=== PATIENT | female | born 1975 | race Caucasian/White ===

== ENCOUNTER 2020-12-15 12:20 | Outpatient (REF) | payer OTHER, SELFPAY ==
[2020-12-15 13:46] LABS: MANUAL DIFF FLAG NO
[2020-12-15 13:51] LABS: Basophils Absolute Auto 0.1 X10*3/uL (0.0-0.2); Basophils Percent Auto 0.7 % (0-2); Eosinophils Absolute Auto 0.2 X10*3/uL (0.0-0.4); Eosinophils Percent Auto 2.8 % (0-4); Hematocrit 42.7 % (37-47); Hemoglobin 13.8 g/dl (12.0-16.0); Imm Gran Abs Auto 0.02 X10*3/uL (0.00-0.03); Imm Gran Pct Auto 0.3 % (0.0-0.4); Lymphocytes Absolute Auto 1.6 X10*3/uL (1.2-4.9); Mean Corpuscular HGB Conc 32.3 g/dl (31.0-35.0); Mean Corpuscular Hemoglobin 31.2 pg (27.0-33.0); Mean Corpuscular Volume 96.6 fL (80-98); Monocytes Absolute Auto 0.7 X10*3/uL (0.1-1.2); Neutrophils Absolute Auto 4.3 X10*3/uL (2.0-8.3); Neutrophils Percent Auto 63.2 % (45-73); Platelet Count 360 X10*3/uL (160-400); Red Blood Count 4.42 X10*6/uL (4.20-5.50); Red Cell Distribution Width 13.8 % (11.0-16.0); White Blood Count 6.8 X10*3/uL (4.8-10.8)
[2020-12-15 14:18] LABS: Anion Gap 11 (12-20); Blood Urea Nitrogen 7 mg/dL (9-16); Carbon Dioxide 28 mmol/L (22-29); Chloride 105 mmol/L (96-108); Estimated Glomerular Filt Rate > 60; Glucose Random 94 mg/dL (60-115); Potassium 4.1 mmol/L (3.3-5.1); Sodium 140 mmol/L (135-145)
== END 2020-12-15 12:21 | disposition home or self-care (01) ==
LOC: HO.LAB 12:20
PROVIDERS: Visit Provider Nurse Practitioner Family
DX: R10.9 Unspecified abdominal pain (principal); R31.9 Hematuria, unspecified
CPT/HCPCS: 36415; 80048; 85025; 87086

== ENCOUNTER 2020-12-15 12:34 | Outpatient (REF) | payer OTHER, SELFPAY ==
--- NOTE | ~2020-12-15 | US_ITS ---
EXAMINATION: US RETROPERITONEAL LIMITED (RENAL ONLY) CLINICAL INFORMATION: Abdominal pain. COMPARISON: Ultrasound renal 10/17/2019. Ultrasound abdomen 04/30/2016. CT abdomen pelvis 02/16/2009. TECHNIQUE: Real-time imaging of the kidneys. FINDINGS: RIGHT KIDNEY: 11.1 x 5.3 x 5.6 cm (SAG x AP x TRV). The kidney is normal in size, contour, and echogenicity. Renal cortical thickness is normal. No calculi or focal parenchymal lesions. No hydronephrosis. LEFT KIDNEY: 10.9 x 5.6 x 4.3 cm (SAG x AP x TRV). The kidney is normal in size, contour, and echogenicity. Renal cortical thickness is normal. There are 2, 2 mm echogenic foci in the lower pole with twinkle artifact suggestive of small stones. No focal parenchymal lesions or hydronephrosis. US/US renal BI IMPRESSION: Small left renal stones.
== END 2020-12-15 12:35 | disposition home or self-care (01) ==
LOC: HO.HMGCX 12:34
PROVIDERS: PCP Internal Medicine; Visit Provider Nurse Practitioner Family
DX: R10.9 Unspecified abdominal pain (principal)
CPT/HCPCS: 76775

== ENCOUNTER 2021-01-30 15:49 | Outpatient (REF) | payer OTHER, SELFPAY ==
--- NOTE | ~2021-01-30 | MM_ITS ---
EXAMINATION: MM SCREENING DIGITAL BREAST TOMOSYNTHESIS, BILATERAL CLINICAL INFORMATION: Screening. Asymptomatic. The lifetime risk of breast cancer based on the Tyrer-Cuzick Model is 7%. COMPARISON: Mammography: 08/30/2019, 01/27/2018 TECHNIQUE: Digital breast tomosynthesis is performed in both the craniocaudal and mediolateral oblique views along with computer-aided detection (CAD). Synthesized 2D images are generated from the tomosynthesis. FINDINGS: The breasts are heterogeneously dense, which may obscure small masses (ACR BI-RADS breast composition Category c). There are no significant masses, abnormal calcifications, or other abnormalities. Parenchymal pattern is similar to prior studies. The axilla and skin contours are unremarkable. MM/MM tomosynthesis screening BI IMPRESSION: No mammographic evidence of malignancy. ASSESSMENT: BI-RADS 1: Negative RECOMMENDATION: Routine annual mammography screening. This patient's information was entered into a reminder system with a target due date for their next mammogram.
== END 2021-01-30 15:50 | disposition home or self-care (01) ==
LOC: HO.MAMMO 15:49
PROVIDERS: Visit Provider Internal Medicine
DX: Z12.31 Encounter for screening mammogram for malignant neoplasm of breast (principal)
CPT/HCPCS: 77063; 77067

== ENCOUNTER 2021-04-13 11:34 | Outpatient (REF) | payer OTHER, SELFPAY | END 2021-04-13 11:35 | disposition home or self-care (01) | LOC: HO.LNP 11:34 | PROVIDERS: Visit Provider Hospitalist | DX: Z20.822 Contact with and (suspected) exposure to COVID-19 (principal); J45.21 Mild intermittent asthma with (acute) exacerbation | CPT/HCPCS: U0003; U0005 ==

== ENCOUNTER 2021-06-13 10:54 | Outpatient (REF) | payer OTHER, SELFPAY ==
[2021-06-13 11:27] LABS: MANUAL DIFF FLAG NO
[2021-06-13 11:29] LABS: Basophils Percent Auto 0.6 % (0-2); Eosinophils Absolute Auto 0.2 X10*3/uL (0.0-0.4); Eosinophils Percent Auto 3.8 % (0-4); Hematocrit 38.7 % (37-47); Hemoglobin 13.1 g/dl (12.0-16.0); Imm Gran Abs Auto 0.01 X10*3/uL (0.00-0.03); Imm Gran Pct Auto 0.2 % (0.0-0.4); Lymphocytes Absolute Auto 1.6 X10*3/uL (1.2-4.9); Lymphocytes Percent Auto 24.6 % (20-40); Mean Corpuscular HGB Conc 33.9 g/dl (31.0-35.0); Mean Corpuscular Hemoglobin 31.1 pg (27.0-33.0); Mean Corpuscular Volume 91.9 fL (80-98); Mean Platelet Volume 9.8 fL (9.4-12.3); Monocytes Absolute Auto 0.5 X10*3/uL (0.1-1.2); Monocytes Percent Auto 7.8 % (2-11); Platelet Count 338 X10*3/uL (160-400); Red Blood Count 4.21 X10*6/uL (4.20-5.50); White Blood Count 6.3 X10*3/uL (4.8-10.8)
[2021-06-13 11:34] LABS: Glucose Urine UA NEG (NEG); Leukocyte Esterase Urine NEG (NEG); Nitrite Urine NEG (NEG); Urine Blood 1+ (NEG); Urine Ketones NEG (NEG); Urine Protein 1+ MG/DL (NEG-TRACE)
[2021-06-13 11:41] LABS: Appearance Urine HAZY; Color Urine YELLOW
[2021-06-13 11:55] LABS: Alanine Aminotransferase 21 U/L (0-31); Anion Gap 14 (12-20); Aspartate Amino Transferase 16 U/L (5-31); Blood Urea Nitrogen 7 mg/dL (9-16); Calcium 9.8 mg/dL (8.4-10.2); Carbon Dioxide 25 mmol/L (22-29); Chloride 106 mmol/L (96-108); Cholesterol 208 mg/dL; Estimated Glomerular Filt Rate > 60; Glucose Fasting 88 mg/dL (60-99); HDL Cholesterol 82 mg/dL; LDL Cholesterol Calculated 115 mg/dl; Sodium 141 mmol/L (135-145); Triglycerides 57 mg/dL
[2021-06-13 11:59] LABS: Mucus Urine 2+ /LPF; Squamous Epithelial Cell Urine 2+ /LPF
[2021-06-13 12:13] LABS: TSH reflex Free T4 0.39 uIU/mL (0.32-4.0); Vitamin D 25-OH Total 23.2 ng/mL (>30)
== END 2021-06-13 10:55 | disposition home or self-care (01) ==
LOC: HO.HMGCLDS 10:54
PROVIDERS: PCP Internal Medicine; Visit Provider Internal Medicine
DX: Z00.01 Encounter for general adult medical examination with abnormal findings (principal); R31.9 Hematuria, unspecified; R10.9 Unspecified abdominal pain; I10 Essential (primary) hypertension; Z86.32 Personal history of gestational diabetes; Z83.49 Family history of other endocrine, nutritional and metabolic diseases
CPT/HCPCS: 36415; 80048; 80061; 81001; 82306; 84443; 84450; 84460; 85025

== ENCOUNTER 2021-06-21 00:11 | Emergency (ER) | payer OTHER, SELFPAY ==
--- NOTE | ~2021-06-21 | XR_ITS ---
EXAMINATION: XR CHEST CLINICAL INFORMATION: Shortness of breath. Covid positive. COMPARISON: 09/11/2010 TECHNIQUE: Frontal view of the chest was obtained. FINDINGS: Bilateral nipple piercings. The lungs are well expanded. There is no focal consolidation, edema, or effusion. No pneumothorax. The cardiomediastinal silhouette is within normal limits. No acute osseous abnormality. XR/XR chest 1V IMPRESSION: Clear lungs.
[2021-06-21 00:45] VITALS: BP 127/64; PULSE 84; RESP 20; TEMP 37.4; O2SAT 98; BMI 24.3
--- NOTE | 2021-06-21 02:54 | ECG_ITS ---
Test Reason : DIZZINESS Blood Pressure : / mmHG Vent. Rate : 078 BPM Atrial Rate : 078 BPM P-R Int : 126 ms QRS Dur : 086 ms QT Int : 392 ms P-R-T Axes : 012 050 032 degrees QTc Int : 446 ms Sinus rhythm with Premature atrial complexes Otherwise normal ECG When compared with ECG of 01-DEC-2019 21:25, Premature atrial complexes are now Present Referred By: Bell Tobar Electronically Signed By:EDIE GRAY
--- NOTE | 2021-06-21 02:55 | ED.GENADULT ---
HPI - General Adult General Chief complaint: Nausea/Vomiting/Diarrhea Stated complaint: asthma nausea asthma Time Seen by Provider: 06/21/21 02:47 Source: patient Mode of arrival: ambulatory Limitations: no limitations History of Present Illness HPI narrative: Patient was emergency room complaining of generalized malaise. Patient complaining of headache, diffuse body aches, subjective fever, nausea, no vomiting or diarrhea. Related Data Home Medications Medication Instructions Recorded Confirmed albuterol sulfate 90 mcg/actuation 2 puff PO Q4H PRN 01/01/21 06/08/21 aerosol inhaler Previous Rx's Medication Instructions Recorded diclofenac sodium 1 % topical gel 2 g TOPICAL QID PRN #100 g 01/01/21 budesonide-formoterol HFA 160 2 puff INHALATION Q12H #10.2 g 06/08/21 mcg-4.5 mcg/actuation aerosol inhaler (Symbicort) cholecalciferol (vitamin D3) 1,250 1,250 mcg PO QWEEK 90 Days #13 cap 06/15/21 mcg (50,000 unit) capsule Allergies Allergy/AdvReac Type Severity Reaction Status Date / Time morphine [Morphine] Allergy Mild RASH Verified 06/08/21 17:37 penicillin G [Penicillin G] Allergy Mild ANAPHYLAXIS Verified 06/08/21 17:37 penicillin V Allergy Unknown anaphylaxis Verified 06/08/21 17:37 Review of Systems Review of Systems: Constitutional : No Weight loss, complaining of subjective fever, chills, fatigue, generalized malaise ENT/Mouth : No Hearing loss, No Ear Pain, No Nasal Congestion, No Sinus Pain, No Hoarseness, No sore throat, No Rhinorrhea, No Swallowing Difficulty Eyes: No Eye Pain, No Swelling, No Redness, No Foreign Body, No Discharge, No Vision Changes Cardiovascular : Complaining of chest achiness and back achiness No SOB, No Dyspnea on Exertion, No Orthopnea, No Edema, No Palpitations Respiratory : No Cough, No Sputum, No Wheezing, No Smoke Exposure, No Dyspnea Gastrointestinal : Complaining Nausea, No Vomiting, No Diarrhea, No Constipation, No abdominal Pain, No Hematochezia, No Melena Genitourinary : no irregular bleeding, No Dysuria, No Urinary Frequency, No Hematuria, No Urinary Incontinence, No Urgency, No Flank Pain, No Urinary Flow Changes, No Hesitancy Musculoskeletal : No joint pain, No Myalgias, No Joint Swelling Skin : No Skin Lesions, No rash Neuro : No Weakness, No Numbness, No Paresthesias, No Loss of Consciousness, No Dizziness, No Headache Psych : No Anxiety/Panic, No Depression, No SI/HI/AH/VH, No Social Issues, Heme/Lymph: No Bruising, No Bleeding,No Lymphadenopathy Endocrine : No Polyuria, No Polydipsia, No Temperature Intolerance [facility] Past Medical History Medical History Annual visit for general adult medical examination with abnormal findings Family history of thyroid disease Hx gestational diabetes Lumbago of lumbar region with sciatica Mild intermittent asthma Numbness and tingling of both legs Upper back pain on right side Surgical History History of appendectomy History of eye surgery History of removal of cyst History of tubal ligation Family History Family History (Updated 06/08/21 @ 12:50 by Sandra Dudley [facility]) Father CVD (cardiovascular disease) Mother No problems noted. Daughter No problems noted. Daughter No problems noted. 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 Oriented X3. No acute distress. Eyes: Pupils equal, round and reactive to light. ENT: Pharynx normal. Neck: Normal inspection. Neck supple. No lymph nodes noted. No crepitus CVS: Normal heart rate and rhythm. Pulses normal. Normal S1 and S2 Respiratory: No respiratory distress. Breath sounds normal. No Wheezing. No rales Abdomen: Soft and nontender. No rigidity. No distention. good BS x4 Skin: Skin warm and dry. Normal skin color. Normal skin turgor. Extremities: No lower extremity edema. No Lacerations. No Rash Neuro: Oriented X 3. No motor deficit. No sensory deficit. Moving all extermities. No slurred speech. Course Course Course Narrative: Patient tested positive for COVID-19. Chest x-ray negative, patient did not receive the immunization. Patient is ready for discharge. However, patient states that she is homeless, she does not have anywhere to live, currently staying with her 2 kids at a friend's house. States that if her friend finds out that she has COVID-19, she will be kicked out from the place with her 2 kids. Patient concerned about being homeless. Case management and PT consult pending. Sign-out given to Dr. Blackwell Medical Decision Making Lab Data Result diagrams: 06/21/21 03:57 06/21/21 03:57 Labs: Lab Results 06/21/21 06/21/21 06/21/21 Range/Units 03:57 03:57 03:57 WBC 6.5 (4.8-10.8) X10*3/uL RBC 4.46 (4.20-5.50) X10*6/uL Hgb 13.7 (12.0-16.0) g/dl Hct 40.5 (37-47) % MCV 90.8 (80-98) fL MCH 30.7 (27.0-33.0) pg MCHC 33.8 (31.0-35.0) g/dl RDW 12.0 (11.0-16.0) % Plt Count 279 (160-400) X10*3/uL MPV 9.3 L (9.4-12.3) fL Immature Gran % (Auto) 0.3 (0.0-0.4) % Neut % (Auto) 86.3 H (45-73) % Lymph % (Auto) 3.7 L (20-40) % Lassen % (Auto) 9.1 (2-11) % Eos % (Auto) 0.3 (0-4) % Baso % (Auto) 0.3 (0-2) % Lymph # (Auto) 0.2 L (1.2-4.9) X10*3/uL Lassen # (Auto) 0.6 (0.1-1.2) X10*3/uL Eos # (Auto) 0.0 (0.0-0.4) X10*3/uL Baso # (Auto) 0.0 (0.0-0.2) X10*3/uL Abs Immat Gran (auto) 0.02 (0.00-0.03) X10*3/uL Absolute Neuts (auto) 5.6 (2.0-8.3) X10*3/uL Absolute Nucleated RBC 0.000 (0.0-0.012) X10*3/uL Nucleated RBC % (auto) 0.0 (0.0-0.2) /100WBC Sodium Cancelled Potassium Cancelled Chloride Cancelled Carbon Dioxide Cancelled Anion Gap Cancelled BUN Cancelled Creatinine Cancelled Estim Creat Clear Calc Cancelled Estimated GFR Cancelled Random Glucose Cancelled Calcium Cancelled Total Bilirubin (0.0-1.0) mg/dL Direct Bilirubin (0.0-0.5) mg/dL AST (5-31) U/L ALT (0-31) U/L Alkaline Phosphatase (39-117) U/L Total Protein (6.5-8.0) g/dL Albumin (3.5-5.0) g/dL Beta HCG, Quant mIU/mL Urine Test (NEGATIVE) COVID-19 (SEUN) Positive A (Negative) COVID-19 Clin Com See Note 06/21/21 06/21/21 Range/Units 03:57 04:24 WBC (4.8-10.8) X10*3/uL RBC (4.20-5.50) X10*6/uL Hgb (12.0-16.0) g/dl Hct (37-47) % MCV (80-98) fL MCH (27.0-33.0) pg MCHC (31.0-35.0) g/dl RDW (11.0-16.0) % Plt Count (160-400) X10*3/uL MPV (9.4-12.3) fL Immature Gran % (Auto) (0.0-0.4) % Neut % (Auto) (45-73) % Lymph % (Auto) (20-40) % Lassen % (Auto) (2-11) % Eos % (Auto) (0-4) % Baso % (Auto) (0-2) % Lymph # (Auto) (1.2-4.9) X10*3/uL Lassen # (Auto) (0.1-1.2) X10*3/uL Eos # (Auto) (0.0-0.4) X10*3/uL Baso # (Auto) (0.0-0.2) X10*3/uL Abs Immat Gran (auto) (0.00-0.03) X10*3/uL Absolute Neuts (auto) (2.0-8.3) X10*3/uL Absolute Nucleated RBC (0.0-0.012) X10*3/uL Nucleated RBC % (auto) (0.0-0.2) /100WBC Sodium 139 Potassium 4.1 Chloride 107 Carbon Dioxide 23 Anion Gap 13 BUN 9 Creatinine 0.77 Estim Creat Clear Calc 89.7 Estimated GFR > 60 Random Glucose 112 Calcium 9.5 Total Bilirubin 0.3 (0.0-1.0) mg/dL Direct Bilirubin < 0.2 (0.0-0.5) mg/dL AST 51 H (5-31) U/L ALT 44 H (0-31) U/L Alkaline Phosphatase 103 (39-117) U/L Total Protein 7.5 (6.5-8.0) g/dL Albumin 4.5 (3.5-5.0) g/dL Beta HCG, Quant < 2 mIU/mL Urine Test NEGATIVE (NEGATIVE) COVID-19 (SEUN) (Negative) COVID-19 Clin Com ECG Data Attestation: I personally reviewed and interpreted this ECG as follows: (Sinus rhythm, heart rate 78, no ST segment depression or elevation, no T-wave inversion, QTC 446) Discharge Plan Discharge Clinical Impression: COVID-19 Patient Disposition: Home, Self-Care Instructions: COVID-19 (Coronavirus Disease 2019) (ED) Additional Instructions: Please follow-up with your primary care physician tomorrow. If you have any worsening or new symptoms, please return to the emergency room or call 911 Prescriptions: No Action cholecalciferol (vitamin D3) 1,250 mcg (50,000 unit) capsule 1,250 mcg PO QWEEK 90 Days Qty: 13 RF: 0 ketorolac 60 mg/2 mL solution 60 mg IM ONCE Qty: 2 RF: 0 budesonide-formoterol [Symbicort] 160-4.5 mcg/actuation HFA aerosol inhaler 2 puff inhalation Q12H Qty: 10.2 RF: 0 albuterol sulfate 90 mcg/actuation HFA aerosol inhaler 2 puff PO Q4H PRNRF: 0 diclofenac sodium 1 % gel 2 g topical QID PRN (Reason: pain, moderate) Qty: 100 RF: 2
[2021-06-21] MEDS: Ibuprofen 600 MG TABLET PO (03:50)
[2021-06-21 04:00] VITALS: BP 136/84; PULSE 74; RESP 18; O2SAT 98
[2021-06-21 04:01] LABS: MANUAL DIFF FLAG NO
[2021-06-21 04:03] LABS: Basophils Percent Auto 0.3 % (0-2); Eosinophils Percent Auto 0.3 % (0-4); Hematocrit 40.5 % (37-47); Hemoglobin 13.7 g/dl (12.0-16.0); Imm Gran Abs Auto 0.02 X10*3/uL (0.00-0.03); Imm Gran Pct Auto 0.3 % (0.0-0.4); Lymphocytes Absolute Auto 0.2 X10*3/uL (1.2-4.9); Lymphocytes Percent Auto 3.7 % (20-40); Mean Corpuscular HGB Conc 33.8 g/dl (31.0-35.0); Mean Corpuscular Hemoglobin 30.7 pg (27.0-33.0); Mean Corpuscular Volume 90.8 fL (80-98); Mean Platelet Volume 9.3 fL (9.4-12.3); Monocytes Absolute Auto 0.6 X10*3/uL (0.1-1.2); Monocytes Percent Auto 9.1 % (2-11); Neutrophils Absolute Auto 5.6 X10*3/uL (2.0-8.3); Neutrophils Percent Auto 86.3 % (45-73); Platelet Count 279 X10*3/uL (160-400); Red Blood Count 4.46 X10*6/uL (4.20-5.50); White Blood Count 6.5 X10*3/uL (4.8-10.8)
[2021-06-21] MEDS: 0.9 % Sodium Chloride 1,000 ML 999 ML IVCONT (04:04)
[2021-06-21 04:16] LABS: IDNOW Serial# 9DD0AD1C
[2021-06-21 04:18] LABS: COVID-19 Test Positive (Negative)
[2021-06-21 04:32] LABS: UPreg QC Valid YES; Urine Pregnancy NEGATIVE (NEGATIVE)
[2021-06-21 04:32] LABS: Alanine Aminotransferase 44 U/L (0-31); Albumin Level 4.5 g/dL (3.5-5.0); Alkaline Phosphatase 103 U/L (39-117); Anion Gap 13 (12-20); Aspartate Amino Transferase 51 U/L (5-31); Bilirubin Direct < 0.2 mg/dL (0.0-0.5); Bilirubin Total 0.3 mg/dL (0.0-1.0); Blood Urea Nitrogen 9 mg/dL (9-16); Calcium 9.5 mg/dL (8.4-10.2); Carbon Dioxide 23 mmol/L (22-29); Chloride 107 mmol/L (96-108); Creatinine Clr Calc Pharmacy 89.7; Estimated Glomerular Filt Rate > 60; Glucose Random 112 mg/dL (60-115); Potassium 4.1 mmol/L (3.3-5.1); Sodium 139 mmol/L (135-145); Total Protein 7.5 g/dL (6.5-8.0)
[2021-06-21 04:38] LABS: HCG Quantitative < 2 mIU/mL
[2021-06-21 05:43] VITALS: BP 132/73; PULSE 84; RESP 16
--- NOTE | 2021-06-21 09:19 | MHC.CM.ED ---
Received consult for assessment of d/c needs: review of EMR notes pt with + COVID and in need of housing (listed as homeless). Pt has already d/c'd from the ED without CM consult. EMR notes she and her 2 children are staying with friends and will all be masked.
== END 2021-06-21 08:39 | disposition home or self-care (01) ==
PROVIDERS: Emergency Provider Emergency Medicine; PCP Internal Medicine
DX: U07.1 COVID-19 (principal); R11.2 Nausea with vomiting, unspecified; J45.909 Unspecified asthma, uncomplicated; Z79.899 Other long term (current) drug therapy; Z87.891 Personal history of nicotine dependence
CPT/HCPCS: 36415; 71045; 80048; 80076; 81025; 84702; 85025; 87086; 87635; 93005; 99284

== ENCOUNTER 2021-06-24 22:23 | Emergency (ER) | payer OTHER, SELFPAY ==
--- NOTE | 2021-06-24 | ECG_ITS ---
Test Reason : CHEST PAIN Blood Pressure : / mmHG Vent. Rate : 070 BPM Atrial Rate : 070 BPM P-R Int : 114 ms QRS Dur : 082 ms QT Int : 406 ms P-R-T Axes : -02 040 028 degrees QTc Int : 438 ms Normal sinus rhythm Normal ECG When compared with ECG of 21-JUN-2021 04:08, Premature atrial complexes are no longer Present Referred By: Generic ED Physician Electronically Signed By:EDIE GRAY
[2021-06-24 22:24] VITALS: BP 135/75; BP 153/85; PULSE 74; PULSE 75; RESP 18; TEMP 37.3; O2SAT 98; BMI 24.0
[2021-06-24 22:42] LABS: MANUAL DIFF FLAG NO
[2021-06-24 22:43] LABS: Eosinophils Percent Auto 0.3 % (0-4); Hemoglobin 14.3 g/dl (12.0-16.0); Imm Gran Abs Auto 0.01 X10*3/uL (0.00-0.03); Imm Gran Pct Auto 0.3 % (0.0-0.4); Lymphocytes Absolute Auto 0.7 X10*3/uL (1.2-4.9); Lymphocytes Percent Auto 24.2 % (20-40); Mean Corpuscular HGB Conc 34.9 g/dl (31.0-35.0); Mean Corpuscular Hemoglobin 30.8 pg (27.0-33.0); Mean Corpuscular Volume 88.2 fL (80-98); Mean Platelet Volume 9.9 fL (9.4-12.3); Monocytes Absolute Auto 0.3 X10*3/uL (0.1-1.2); Monocytes Percent Auto 10.9 % (2-11); Neutrophils Absolute Auto 1.9 X10*3/uL (2.0-8.3); Neutrophils Percent Auto 64.3 % (45-73); Platelet Count 195 X10*3/uL (160-400); Red Blood Count 4.65 X10*6/uL (4.20-5.50); Red Cell Distribution Width 11.9 % (11.0-16.0); White Blood Count 2.9 X10*3/uL (4.8-10.8)
[2021-06-24 23:06] LABS: Troponin-I High Sensitivity 11.1 ng/L (<3.5-17.0)
[2021-06-24 23:23] LABS: INTERNATIONAL NORM RATIO 1.1 (0.9-1.1); Prothrombin Time 12.4 SEC (9.9-13.0)
[2021-06-24 23:27] LABS: D Dimer < 200 NG/ML
[2021-06-24 23:56] LABS: Alanine Aminotransferase 20 U/L (0-31); Albumin Level 4.1 g/dL (3.5-5.0); Alkaline Phosphatase 81 U/L (39-117); Anion Gap 13 (12-20); Aspartate Amino Transferase 17 U/L (5-31); Bilirubin Total 0.4 mg/dL (0.0-1.0); Blood Urea Nitrogen 7 mg/dL (9-16); Calcium 8.9 mg/dL (8.4-10.2); Carbon Dioxide 22 mmol/L (22-29); Chloride 108 mmol/L (96-108); Creatinine Clr Calc Pharmacy 97.8; Estimated Glomerular Filt Rate > 60; Glucose Random 110 mg/dL (60-115); Potassium 3.2 mmol/L (3.3-5.1); Sodium 140 mmol/L (135-145); Total Protein 6.8 g/dL (6.5-8.0)
[2021-06-25] VITALS: BP 134/78; PULSE 72; RESP 18; TEMP 37; O2SAT 99
[2021-06-25] MEDS: Potassium Chloride ER 20 MEQ TAB.ER.PRT 60 MEQ PO (01:06)
--- NOTE | 2021-06-25 01:46 | ED_ITS ---
HPI - Chest Pain General Chief Complaint: Chest Pain Stated Complaint: stabbing chest pain. w/ covid Time Seen by Provider: 06/25/21 00:40 Source: patient Mode of arrival: EMS History of Present Illness HPI narrative: 45-year-old female with history of asthma presents with sharp stabbing, left-sided chest pain, radiating into the jaw/neck that started acutely and patient denies association with change in position from lying to sitting up but states that it worsens with deep inspiration. She states that EN route in the ambulance she was given aspirin and that improved her symptoms. Related Data Home Medications Medication Instructions Recorded Confirmed albuterol sulfate 90 mcg/actuation 2 puff PO Q4H PRN 06/25/21 06/25/21 aerosol inhaler diclofenac sodium 1 % topical gel 2 g TOPICAL BID PRN 06/25/21 06/25/21 montelukast 10 mg tablet 1 tab PO DAILY 06/25/21 06/25/21 Allergies Allergy/AdvReac Type Severity Reaction Status Date / Time morphine [Morphine] Allergy Mild RASH Verified 06/08/21 17:37 penicillin G [Penicillin G] Allergy Mild ANAPHYLAXIS Verified 06/08/21 17:37 penicillin V Allergy Unknown anaphylaxis Verified 06/08/21 17:37 Review of Systems Review of Systems: Pertinent positives and negatives as stated in HPI 10 point review of systems is otherwise negative. [facility] Past Medical History Source: nursing notes reviewed Medical History Annual visit for general adult medical examination with abnormal findings Family history of thyroid disease Hx gestational diabetes Lumbago of lumbar region with sciatica Mild intermittent asthma Numbness and tingling of both legs Upper back pain on right side Surgical History History of appendectomy History of eye surgery History of removal of cyst History of tubal ligation Family History Family History Father CVD (cardiovascular disease) Mother No problems noted. Daughter No problems noted. Daughter No problems noted. 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 GENERAL: Well developed, well nourished, in no acute distress. HEAD: Normocephalic/atraumatic EYES: PERRLA, EOMI EARS: Ext canals without abnormality, TMs non-bulging and non-erythematous NOSE: Nares patent bilateral OROPHARYNX: no oral lesions noted, posterior pharynx clear NECK: Supple, no adenopathy LUNGS: Normal breath sounds. No adventitious sounds or accessory muscle use. SpO2<99> CARDIOVASCULAR: Regular rate and rhythm without noted murmurs, no JVD or lower extremity edema. ABDOMEN: Soft, non-tender, non-distended with bowel sounds. SKIN: Inspection of the skin reveals no rashes NEUROLOGIC: Alert and oriented x 4. Course Course Course Narrative: 45-year-old female with history and clinical presentation concerning for possible COVID related symptoms. On review of all investigations no evidence to suggest PE and review of EKG without acute findings and although troponins were noted to be detectable they are not elevated. Serial troponins were conducted and showed a downward trend and patient indicates improvement in her symptoms. MDM - Chest Pain Lab Data Result diagrams: 06/24/21 22:37 06/24/21 23:09 Labs: Lab Results 06/24/21 06/24/21 06/24/21 Range/Units 22:37 22:37 23:09 WBC 2.9 L (4.8-10.8) X10*3/uL RBC 4.65 (4.20-5.50) X10*6/uL Hgb 14.3 (12.0-16.0) g/dl Hct 41.0 (37-47) % MCV 88.2 (80-98) fL MCH 30.8 (27.0-33.0) pg MCHC 34.9 (31.0-35.0) g/dl RDW 11.9 (11.0-16.0) % Plt Count 195 D (160-400) X10*3/uL MPV 9.9 (9.4-12.3) fL Immature Gran % (Auto) 0.3 (0.0-0.4) % Neut % (Auto) 64.3 (45-73) % Lymph % (Auto) 24.2 (20-40) % Woodson % (Auto) 10.9 (2-11) % Eos % (Auto) 0.3 (0-4) % Baso % (Auto) 0.0 (0-2) % Lymph # (Auto) 0.7 L (1.2-4.9) X10*3/uL Woodson # (Auto) 0.3 (0.1-1.2) X10*3/uL Eos # (Auto) 0.0 (0.0-0.4) X10*3/uL Baso # (Auto) 0.0 (0.0-0.2) X10*3/uL Abs Immat Gran (auto) 0.01 (0.00-0.03) X10*3/uL Absolute Neuts (auto) 1.9 L (2.0-8.3) X10*3/uL Absolute Nucleated RBC 0.000 (0.0-0.012) X10*3/uL Nucleated RBC % (auto) 0.0 (0.0-0.2) /100WBC PT 12.4 (9.9-13.0) SEC INR 1.1 (0.9-1.1) D-Dimer < 200 NG/ML Sodium (135-145) mmol/L Potassium (3.3-5.1) mmol/L Chloride (96-108) mmol/L Carbon Dioxide (22-29) mmol/L Anion Gap (12-20) BUN (9-16) mg/dL Creatinine (0.5-1.4) mg/dL Estim Creat Clear Calc Estimated GFR Random Glucose (60-115) mg/dL Calcium (8.4-10.2) mg/dL Total Bilirubin (0.0-1.0) mg/dL AST (5-31) U/L ALT (0-31) U/L Alkaline Phosphatase (39-117) U/L Troponin I High Sens 11.1 (<3.5-17.0) ng/L Total Protein (6.5-8.0) g/dL Albumin (3.5-5.0) g/dL 06/24/21 06/25/21 Range/Units 23:09 01:57 WBC (4.8-10.8) X10*3/uL RBC (4.20-5.50) X10*6/uL Hgb (12.0-16.0) g/dl Hct (37-47) % MCV (80-98) fL MCH (27.0-33.0) pg MCHC (31.0-35.0) g/dl RDW (11.0-16.0) % Plt Count (160-400) X10*3/uL MPV (9.4-12.3) fL Immature Gran % (Auto) (0.0-0.4) % Neut % (Auto) (45-73) % Lymph % (Auto) (20-40) % Woodson % (Auto) (2-11) % Eos % (Auto) (0-4) % Baso % (Auto) (0-2) % Lymph # (Auto) (1.2-4.9) X10*3/uL Woodson # (Auto) (0.1-1.2) X10*3/uL Eos # (Auto) (0.0-0.4) X10*3/uL Baso # (Auto) (0.0-0.2) X10*3/uL Abs Immat Gran (auto) (0.00-0.03) X10*3/uL Absolute Neuts (auto) (2.0-8.3) X10*3/uL Absolute Nucleated RBC (0.0-0.012) X10*3/uL Nucleated RBC % (auto) (0.0-0.2) /100WBC PT (9.9-13.0) SEC INR (0.9-1.1) D-Dimer NG/ML Sodium 140 (135-145) mmol/L Potassium 3.2 L D (3.3-5.1) mmol/L Chloride 108 (96-108) mmol/L Carbon Dioxide 22 (22-29) mmol/L Anion Gap 13 (12-20) BUN 7 L (9-16) mg/dL Creatinine 0.68 (0.5-1.4) mg/dL Estim Creat Clear Calc 97.8 Estimated GFR > 60 Random Glucose 110 (60-115) mg/dL Calcium 8.9 D (8.4-10.2) mg/dL Total Bilirubin 0.4 (0.0-1.0) mg/dL AST 17 D (5-31) U/L ALT 20 (0-31) U/L Alkaline Phosphatase 81 D (39-117) U/L Troponin I High Sens 9.9 (<3.5-17.0) ng/L Total Protein 6.8 (6.5-8.0) g/dL Albumin 4.1 (3.5-5.0) g/dL Discharge Plan Discharge Clinical Impression: Lab test positive for detection of COVID-19 virus, Atypical chest pain Patient Disposition: Home, Self-Care Instructions: COVID-19 (Coronavirus Disease 2019) (ED), Chest Pain (ED) Additional Instructions: 1. Continue to quarantine as per state and Federal guidelines for all personnel that are found to be COVID-19 positive. 2. Recommend alternating [id number] Tylenol/ibuprofen as needed for additional chest wall pain. 3. Follow-up with your primary care provider via telemedicine in the next 1-2 days for re-evaluation. Return to the ER for acute worsening of symptoms. Prescriptions: No Action montelukast 10 mg tablet 1 tab PO DAILY RF: 0 albuterol sulfate 90 mcg/actuation HFA aerosol inhaler 2 puff PO Q4H PRN (Reason: Wheezing) RF: 0 diclofenac sodium 1 % gel 2 g topical BID PRN (Reason: pain) RF: 0 Referrals: Cristina Andersen MD [Primary Care Provider] - 2 days
[2021-06-25 02:41] LABS: Troponin-I High Sensitivity 9.9 ng/L (<3.5-17.0)
== END 2021-06-25 03:12 | disposition home or self-care (01) ==
PROVIDERS: Emergency Provider Student in an Organized Health Care Education/Training Program; PCP Internal Medicine
DX: U07.1 COVID-19 (principal); R07.9 Chest pain, unspecified; Z79.899 Other long term (current) drug therapy
CPT/HCPCS: 36415; 80053; 84484; 85025; 85379; 85610; 93005; 99283; 99285

== ENCOUNTER 2022-05-25 12:17 | Emergency (ER) | payer OTHER, SELFPAY ==
--- NOTE | ~2022-05-25 | XR_ITS ---
EXAMINATION: XR CHEST CLINICAL INFORMATION: Chest tightness COMPARISON: 06/26/2021 TECHNIQUE: 2 views of the chest were obtained. FINDINGS: No significant abnormality is noted involving the heart, lungs, mediastinum, bony thorax or soft tissues. XR/XR chest 2V IMPRESSION: Unremarkable examination.
[2022-05-25 12:41] VITALS: BP 145/76; PULSE 107; RESP 20; TEMP 38; O2SAT 100; BMI 25.8
--- NOTE | 2022-05-25 12:47 | ECG_ITS ---
Test Reason : chest tightness Blood Pressure : / mmHG Vent. Rate : 102 BPM Atrial Rate : 102 BPM P-R Int : 122 ms QRS Dur : 078 ms QT Int : 322 ms P-R-T Axes : 057 049 017 degrees QTc Int : 419 ms Sinus tachycardia Nonspecific ST abnormality Borderline ECG No significant changes when compared with the previous EKG of 24 jun 2021 Referred By: Generic ED Physician Electronically Signed By:TREY MONAHAN
[2022-05-25] MEDS: Ondansetron ODT 4 MG TAB.RAPDIS TRANSLINGU (12:50)
[2022-05-25 13:07] LABS: MANUAL DIFF FLAG NO
[2022-05-25 13:08] LABS: Basophils Percent Auto 0.3 % (0-2); Eosinophils Absolute Auto 0.1 X10*3/uL (0.0-0.4); Hematocrit 37.7 % (37.0-47.0); Hemoglobin 12.6 g/dl (12.0-16.0); Imm Gran Abs Auto 0.02 X10*3/uL (0.00-0.03); Imm Gran Pct Auto 0.3 % (0.0-0.4); Lymphocytes Absolute Auto 0.5 X10*3/uL (1.2-4.9); Lymphocytes Percent Auto 7.6 % (20-40); Mean Corpuscular HGB Conc 33.4 g/dl (31.0-35.0); Mean Corpuscular Volume 86.7 fL (80.0-98.0); Monocytes Absolute Auto 0.5 X10*3/uL (0.1-1.2); Monocytes Percent Auto 7.6 % (2-11); Neutrophils Absolute Auto 4.9 x10*3/uL (2.0-8.3); Neutrophils Percent Auto 83.2 % (45-73); Platelet Count 249 X10*3/uL (160-400); Red Blood Count 4.35 X10*6/uL (4.20-5.50); Red Cell Distribution Width 12.3 % (11.0-16.0); White Blood Count 5.9 X10*3/uL (4.8-10.8)
[2022-05-25 13:16] LABS: IDNOW Serial# 16C4AD1C
[2022-05-25 13:17] LABS: COVID-19 Test Positive (Negative)
[2022-05-25 13:31] LABS: Troponin-I High Sensitivity 3.9 ng/L (<3.5-17.0)
--- NOTE | 2022-05-25 14:13 | ED.NAVMDI ---
HPI - Nausea/Vomiting/Diarrhea General Chief complaint: Nausea/Vomiting/Diarrhea Stated complaint: Chest pain/Vomiting/Fever Time Seen by Provider: 05/25/22 12:49 Source: patient Mode of arrival: ambulatory Limitations: no limitations History of Present Illness HPI Narrative: patient with diarrhea, vomiting and chest pain starting this morning. She had diffuse myalgias MD elicited complaint: nausea, vomiting and diarrhea Onset (ago): hour(s) Associated nausea: Yes Associated abdominal pain: Yes Severity: mild Quality: cramping Associated symptoms: myalgias, fever/chills, malaise and nausea/vomiting Related Data Home Medications Medication Instructions Recorded Confirmed cholecalciferol (vitamin D3) 25 25 mcg PO DAILY 12/15/21 12/15/21 mcg (1,000 unit) capsule vitamin E (dl, acetate) 450 mg 450 mg PO DAILY 12/15/21 12/15/21 (1,000 unit) capsule Previous Rx's Medication Instructions Recorded sumatriptan succinate 50 mg tablet 50 mg PO Q2-4H PRN migraine 01/13/22 (Imitrex) headache #10 tabs albuterol sulfate 90 mcg/actuation 2 puff PO Q4H PRN Wheezing #6.7 03/09/22 aerosol inhaler grams azithromycin 250 mg tablet See Rx Instructions PO .COMPLEX #6 03/09/22 tabs naproxen 500 mg tablet (Naprosyn) 500 mg PO BID #20 tabs 05/25/22 ondansetron 4 mg disintegrating 4 mg PO Q8H 4 days #12 tabs 05/25/22 tablet Allergies Allergy/AdvReac Type Severity Reaction Status Date / Time morphine [Morphine] Allergy Mild RASH Verified 03/09/22 16:56 penicillin G [Penicillin G] Allergy Mild ANAPHYLAXIS Verified 03/09/22 16:56 penicillin V Allergy Unknown anaphylaxis Verified 03/09/22 16:56 Review of Systems Constitutional: Constitutional: Reports no additional constitutional complaints Eyes: Eyes: Reports no additional eye complaints ENT: Denies dizziness Cardiovascular: Cardiovascular: Reports no additional cardiovascular complaints Respiratory: Respiratory: Reports as per HPI Gastrointestinal: Gastrointestinal: Reports nausea Genitourinary: Genitourinary: Reports no additional female genitourinary complaints Musculoskeletal: Musculoskeletal: Reports no additional musculoskeletal complaints Integumentary/Breasts: Skin/Breast: Denies rash Neurologic: Reports system reviewed and no additional complaints, except as documented, Denies dizziness and Denies Sensory deficit (Neuro) Psychiatric: Psychiatric: Denies anxiety PMFSH Past Medical History Medical History Annual visit for general adult medical examination with abnormal findings Elevated alkaline phosphatase level Elevated liver enzymes Family history of thyroid disease Hx gestational diabetes Lumbago of lumbar region with sciatica Mild intermittent asthma Numbness and tingling of both legs Tension type headache Upper back pain on right side Surgical History History of appendectomy History of eye surgery History of removal of cyst History of tubal ligation Family History Family History Father CVD (cardiovascular disease) Mother No problems noted. Daughter No problems noted. Daughter No problems noted. 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 Current occupational exposures/hazards: No Physical Exam Vital Signs: Vital Signs: Last Vital Signs Temp 98.2 F 05/25/22 14:14 Pulse 86 05/25/22 14:14 Resp 18 05/25/22 14:14 BP 132/74 05/25/22 14:14 Pulse Ox 100 05/25/22 14:14 O2 Del Method 05/25/22 14:14 BMI result Body Mass Index 25.8 Const: General: healthy appearing Nutritional Appearance: average body habitus Orientation/consciousness: oriented to person and patient oriented x3 Limitations: no limitations HEENT: Head: Yes normal to inspection Ears: external ears normal General nose exam: Normal external nose present Mouth: Normal oral and palatal mucosa present and oropharynx normal Throat: Yes posterior oropharynx normal Eyes: General: appearance normal, both eyes and all related structures Neck: Other: supple Neck: Yes normal visual inspection Chest: Chest palpation & inspection: normal inspection of the chest Resp: Auscultation: clear to auscultation bilaterally Cardio: Jugular venous distension: no JVD Rate: regular rate Rhythm: regular rhythm Heart sounds: S1 normal heart sound present and S2 normal heart sound present GI: Inspection: Yes normal to inspection Palpation (GI): Soft to palpation, nontender and No hepatosplenomegaly present Auscultation: normal bowel sounds : General: Yes no CVA tenderness Back/Spine/Pelvis: Back: no CVA tenderness Skin: General skin exam: no rashes or lesions noted Neuro: General: oriented to person and patient oriented x3 Cranial nerves: Yes CN's II-XII intact bilaterally Motor exam (neuro): 5/5 motor strength present throughout Sensory Exam: No Sensory deficit (Neuro) Extrem: General: Yes normal to inspection Psych: Appearance: grossly normal Course Reevaluation(s) Reevaluation #1: patient with COVID, will start High dose NSAIDS will dc home Time: 14:24 MDM - Nausea/Vomiting/Diarrhea Lab Data Result diagrams: 05/25/22 12:57 05/25/22 12:57 Labs: Lab Results 05/25/22 05/25/22 05/25/22 Range/Units 12:57 12:57 12:57 WBC 5.9 (4.8-10.8) X10*3/uL RBC 4.35 (4.20-5.50) X10*6/uL Hgb 12.6 (12.0-16.0) g/dl Hct 37.7 (37.0-47.0) % MCV 86.7 (80.0-98.0) fL MCH 29.0 (27.0-33.0) pg MCHC 33.4 (31.0-35.0) g/dl RDW 12.3 (11.0-16.0) % Plt Count 249 (160-400) X10*3/uL MPV 9.0 L (9.4-12.3) fL Immature Gran % (Auto) 0.3 (0.0-0.4) % Neut % (Auto) 83.2 H (45-73) % Lymph % (Auto) 7.6 L (20-40) % [place] % (Auto) 7.6 (2-11) % Eos % (Auto) 1.0 (0-4) % Baso % (Auto) 0.3 (0-2) % Lymph # (Auto) 0.5 L (1.2-4.9) X10*3/uL [place] # (Auto) 0.5 (0.1-1.2) X10*3/uL Eos # (Auto) 0.1 (0.0-0.4) X10*3/uL Baso # (Auto) 0.0 (0.0-0.2) X10*3/uL Abs Immat Gran (auto) 0.02 (0.00-0.03) X10*3/uL Absolute Neuts (auto) 4.9 (2.0-8.3) x10*3/uL Absolute Nucleated RBC 0.000 (0.0-0.012) X10*3/uL Nucleated RBC % (auto) 0.0 (0.0-0.2) /100WBC Sodium 137 (135-145) mmol/L Potassium 4.2 D (3.3-5.1) mmol/L Chloride 104 (96-108) mmol/L Carbon Dioxide 25 (22-29) mmol/L Anion Gap 12 (12-20) BUN 6 L (9-16) mg/dL Creatinine 0.74 (0.5-1.4) mg/dL Estim Creat Clear Calc 96.8 Estimated GFR > 60 Random Glucose 102 (60-115) mg/dL Calcium 9.8 D (8.4-10.2) mg/dL Total Bilirubin 0.5 (0.0-1.0) mg/dL Direct Bilirubin 0.2 (0.0-0.5) mg/dL AST 20 (5-31) U/L ALT 25 (0-31) U/L Alkaline Phosphatase 107 D (39-117) U/L Troponin I High Sens 3.9 (<3.5-17.0) ng/L Total Protein 7.9 (6.5-8.0) g/dL Albumin 4.6 (3.5-5.0) g/dL Lipase 28 (8-78) U/L COVID-19 (SEUN) (Negative) COVID-19 Clin Com 05/25/22 Range/Units 12:57 WBC (4.8-10.8) X10*3/uL RBC (4.20-5.50) X10*6/uL Hgb (12.0-16.0) g/dl Hct (37.0-47.0) % MCV (80.0-98.0) fL MCH (27.0-33.0) pg MCHC (31.0-35.0) g/dl RDW (11.0-16.0) % Plt Count (160-400) X10*3/uL MPV (9.4-12.3) fL Immature Gran % (Auto) (0.0-0.4) % Neut % (Auto) (45-73) % Lymph % (Auto) (20-40) % [place] % (Auto) (2-11) % Eos % (Auto) (0-4) % Baso % (Auto) (0-2) % Lymph # (Auto) (1.2-4.9) X10*3/uL [place] # (Auto) (0.1-1.2) X10*3/uL Eos # (Auto) (0.0-0.4) X10*3/uL Baso # (Auto) (0.0-0.2) X10*3/uL Abs Immat Gran (auto) (0.00-0.03) X10*3/uL Absolute Neuts (auto) (2.0-8.3) x10*3/uL Absolute Nucleated RBC (0.0-0.012) X10*3/uL Nucleated RBC % (auto) (0.0-0.2) /100WBC Sodium (135-145) mmol/L Potassium (3.3-5.1) mmol/L Chloride (96-108) mmol/L Carbon Dioxide (22-29) mmol/L Anion Gap (12-20) BUN (9-16) mg/dL Creatinine (0.5-1.4) mg/dL Estim Creat Clear Calc Estimated GFR Random Glucose (60-115) mg/dL Calcium (8.4-10.2) mg/dL Total Bilirubin (0.0-1.0) mg/dL Direct Bilirubin (0.0-0.5) mg/dL AST (5-31) U/L ALT (0-31) U/L Alkaline Phosphatase (39-117) U/L Troponin I High Sens (<3.5-17.0) ng/L Total Protein (6.5-8.0) g/dL Albumin (3.5-5.0) g/dL Lipase (8-78) U/L COVID-19 (SEUN) Positive A (Negative) COVID-19 Clin Com See Note Imaging Data Chest x-ray: Radiologist's impression: No infiltrate or effusions ECG Data Attestation: I personally reviewed and interpreted this ECG as follows: Interpretation: sinus rate 100, no st or twave changes Discharge Plan Discharge Clinical Impression: COVID-19 Patient Disposition: Home, Self-Care Instructions: COVID-19 (Coronavirus Disease 2019) (ED) Prescriptions: New naproxen [Naprosyn] 500 mg tablet 500 mg PO BID Qty: 20 0RF ondansetron 4 mg tablet,disintegrating 4 mg PO Q8H 4 Days Qty: 12 0RF No Action sumatriptan succinate [Imitrex] 50 mg tablet 50 mg PO Q2-4H PRN (Reason: migraine headache) Qty: 10 0RF Rx Instructions: do not exceed 2 doses per 24 hrs cholecalciferol (vitamin D3) 25 mcg (1,000 unit) capsule 25 mcg PO DAILY vitamin E (dl, acetate) 450 mg (1,000 unit) capsule 450 mg PO DAILY azithromycin 250 mg tablet See Rx Instructions PO .COMPLEX Qty: 6 0RF Rx Instructions: take 500 mg today (day 1), then 250 mg for 4 days (days 2-5) PO albuterol sulfate 90 mcg/actuation HFA aerosol inhaler 2 puff PO Q4H PRN (Reason: Wheezing) Qty: 6.7 0RF Referrals: Cristina Andersen MD [Primary Care Provider] - 1 week
[2022-05-25 14:14] VITALS: BP 132/74; PULSE 86; RESP 18; TEMP 36.8; O2SAT 100
[2022-05-25] MEDS: Ketorolac Tromethamine 30 MG/ML VIAL IVPUSH (14:48)
[2022-05-25] MEDS: 0.9 % Sodium Chloride 1,000 ML 999 ML IVCONT (14:48)
[2022-05-25 15:41] LABS: Alanine Aminotransferase 25 U/L (0-31); Albumin Level 4.6 g/dL (3.5-5.0); Alkaline Phosphatase 107 U/L (39-117); Anion Gap 12 (12-20); Aspartate Amino Transferase 20 U/L (5-31); Bilirubin Direct 0.2 mg/dL (0.0-0.5); Bilirubin Total 0.5 mg/dL (0.0-1.0); Blood Urea Nitrogen 6 mg/dL (9-16); Calcium 9.8 mg/dL (8.4-10.2); Carbon Dioxide 25 mmol/L (22-29); Chloride 104 mmol/L (96-108); Creatinine Clr Calc Pharmacy 96.8; Estimated Glomerular Filt Rate > 60; Glucose Random 102 mg/dL (60-115); Lipase 28 U/L (8-78); Potassium 4.2 mmol/L (3.3-5.1); Sodium 137 mmol/L (135-145); Total Protein 7.9 g/dL (6.5-8.0)
[2022-05-25 16:42] VITALS: BP 117/60; PULSE 100; RESP 18; TEMP 36.8; O2SAT 97
== END 2022-05-25 17:08 | disposition home or self-care (01) ==
LOC: HO.ED 16:25
PROVIDERS: Emergency Provider Emergency Medicine; PCP Internal Medicine
DX: U07.1 COVID-19 (principal); R11.2 Nausea with vomiting, unspecified
CPT/HCPCS: 71046; 80048; 80076; 83690; 84484; 85025; 87635; 93005; 96361; 96372; 96374; 99284; J1885

== ENCOUNTER 2022-11-08 15:52 | Outpatient (REF) | payer OTHER, SELFPAY ==
--- NOTE | ~2022-11-08 | MM_ITS ---
EXAMINATION: MM SCREENING DIGITAL BREAST TOMOSYNTHESIS, BILATERAL CLINICAL INFORMATION: Screening. Asymptomatic. The lifetime risk of breast cancer based on the Tyrer-Cuzick Model is 7.9%. COMPARISON: Mammography: January 30, 2021 and studies dating back to September 23, 2015 TECHNIQUE: Digital breast tomosynthesis is performed in both the craniocaudal and mediolateral oblique views along with computer-aided detection (CAD). Synthesized 2D images are generated from the tomosynthesis. FINDINGS: The breasts are heterogeneously dense, which may obscure small masses (ACR BI-RADS breast composition Category c). There are no significant masses, abnormal calcifications, or other abnormalities. MM/MM tomosynthesis screening BI IMPRESSION: No significant changes from prior exam. ASSESSMENT: BI-RADS 1: Negative RECOMMENDATION: Routine annual mammography screening. This patient's information was entered into a reminder system with a target due date for their next mammogram.
== END 2022-11-08 15:53 | disposition home or self-care (01) ==
LOC: HO.MAMMO 15:52
PROVIDERS: Visit Provider Obstetrics & Gynecology
DX: Z12.31 Encounter for screening mammogram for malignant neoplasm of breast (principal)
CPT/HCPCS: 77063; 77067

== ENCOUNTER 2023-03-08 08:18 | Outpatient (REF) | payer OTHER, SELFPAY ==
[2023-03-08 12:58] LABS: Alanine Aminotransferase 55 U/L (0-31); Albumin Level 4.3 g/dL (3.5-5.0); Alkaline Phosphatase 119 U/L (39-117); Anion Gap 9 (12-20); Aspartate Amino Transferase 22 U/L (5-31); Bilirubin Total 0.6 mg/dL (0.0-1.0); Blood Urea Nitrogen 9 mg/dL (9-16); Calcium 9.7 mg/dL (8.4-10.2); Carbon Dioxide 31 mmol/L (22-29); Chloride 106 mmol/L (96-108); Cholesterol 232 mg/dL; Estimated Glomerular Filt Rate > 60; Glucose Fasting 94 mg/dL (60-99); HDL Cholesterol 71 mg/dL; LDL Cholesterol Calculated 147 mg/dl; Potassium 4.6 mmol/L (3.3-5.1); Sodium 141 mmol/L (135-145); Total Protein 7.2 g/dL (6.5-8.0); Triglycerides 72 mg/dL
[2023-03-08 12:59] LABS: TSH reflex Free T4 0.45 uIU/mL (0.32-4.0); Vitamin D 25-OH Total 23.3 ng/mL (>30)
[2023-03-10 08:54] LABS: Varicella IgG Antibody <135.00 index
== END 2023-03-08 08:19 | disposition home or self-care (01) ==
LOC: HO.HMGCLDS 08:18
PROVIDERS: PCP Internal Medicine; Visit Provider Internal Medicine
DX: Z00.01 Encounter for general adult medical examination with abnormal findings (principal); J45.20 Mild intermittent asthma, uncomplicated; Z83.49 Family history of other endocrine, nutritional and metabolic diseases; Z86.32 Personal history of gestational diabetes; Z87.442 Personal history of urinary calculi
CPT/HCPCS: 36415; 80053; 80061; 82306; 84443; 86787

== ENCOUNTER 2023-04-20 14:53 | Outpatient (REF) | payer OTHER, SELFPAY ==
[2023-04-20 15:54] LABS: Influenza A PCR NEGATIVE (Negative); Influenza B PCR NEGATIVE (Negative); Resp Syncy Virus RNA Qual PCR NEGATIVE (Negative); SARS COV2 PCR INHOUSE POSITIVE (Negative)
== END 2023-04-20 14:54 | disposition home or self-care (01) ==
LOC: HO.LNP 14:53
PROVIDERS: Visit Provider Nurse Practitioner Family
DX: Z13.89 Encounter for screening for other disorder (principal)
CPT/HCPCS: 0241U

== ENCOUNTER 2023-06-06 08:56 | Outpatient (AMB) | payer OTHER, SELFPAY ==
--- NOTE | 2023-06-06 09:13 | AM.OFFWIN_ITS ---
Intake Vital Signs 06/06/23 09:14 Height 5 ft 6 in BP 120/70 Blood Pressure Location Rt brachial Position Sitting Pulse 65 Pulse Source Pulse Oximeter Temp 98.1 F Temp Source Oral Pulse Oximetry (%) 98 Oxygen Delivery Method Room Air Intake Visit Reasons: EST/left foot broken toes? Intake Note: Pt states hit her foot on edge of bed last night, unable to move toe and is black and blue Patient Tobacco Use Status: Former Tobacco user Allergies azithromycin [From Zithromax] Allergy (Intermediate, Verified 06/06/23 09:48) Anaphylaxis morphine [Morphine] Allergy (Mild, Verified 06/06/23 09:48) RASH penicillin G [Penicillin G] Allergy (Mild, Verified 06/06/23 09:48) ANAPHYLAXIS penicillin V Allergy (Unknown, Verified 06/06/23 09:48) anaphylaxis Medication List - Last Reconciled 06/06/23 by Jeff Beck MD albuterol sulfate 90 mcg/actuation 2 puffs PO Q4H PRN benzonatate 100 mg PO TID PRN 10 days cholecalciferol (vitamin D3) 25 mcg PO DAILY naproxen 500 mg PO BID PRN 7 days ondansetron HCl 4 mg PO Q8H PRN 3 days vitamin E (dl, acetate) 450 mg PO DAILY Do you need a note to return to daycare/school/sports/work: Yes HPI EST/left foot broken toes? HPI Details 47-year-old female presents to the office for a sick visit. Patient accidentally kicked the bed with her left foot. Her left foot is swollen and bruised. [facility] Medical History (Updated 06/06/23 @ 09:35 by Jeff Beck MD) Annual visit for general adult medical examination with abnormal findings Elevated alkaline phosphatase level Elevated liver enzymes Family history of thyroid disease Hx gestational diabetes Hx of renal calculi Lumbago of lumbar region with sciatica Mild intermittent asthma Numbness and tingling of both legs Tension type headache Upper back pain on right side Surgical History History of appendectomy History of eye surgery History of removal of cyst History of tubal ligation Family History Father CVD (cardiovascular disease) Mother No problems noted. Daughter No problems noted. Daughter No problems noted. 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 Assessment & Plan Assessment & Plan (1) Contusion of foot, left: Code(s): S90.32XA - Contusion of left foot, initial encounter Plan: X-ray images were personally reviewed by me. Fracture of the phalanges at the base. Nondisplaced. Boot and meloxicam given. If symptoms do not improve to follow-up here. Orders: Orders XR foot LT min 3V Today S90.32XA - Contusion of left foot, initial encounter Coding Level of Care Code Est Pt Level 4 (92380) Diagnoses Contusion of foot, left S90.32XA
[2023-06-06 09:14] VITALS: BP 120/70; PULSE 65; TEMP 36.7; O2SAT 98
== END 2023-06-06 10:16 | disposition home or self-care (01) ==
PROVIDERS: PCP Internal Medicine; Visit Provider Internal Medicine
DX: S90.32XA Contusion of left foot, initial encounter (principal)
CPT/HCPCS: 99214

== ENCOUNTER 2023-06-06 09:43 | Outpatient (REF) | payer OTHER, SELFPAY ==
--- NOTE | ~2023-06-06 | XR_ITS ---
EXAMINATION: XR FOOT, LEFT CLINICAL INFORMATION: Left foot contusion. COMPARISON: None available. TECHNIQUE: AP, lateral, and oblique views of the left foot. An indicator arrow points to the fifth digit. FINDINGS: There is a nondisplaced transverse fracture at the level the proximal aspect of the proximal phalanx of the fifth digit. The middle and distal phalanges as well as the fifth metatarsal are intact. The remainder the digits are intact. The tarsal bones are normally aligned. Mild soft tissue swelling is seen laterally. XR/XR foot LT min 3V IMPRESSION: Acute, nondisplaced fracture in the proximal aspect of the proximal phalanx of the fifth digit with mild surrounding soft tissue swelling.
== END 2023-06-06 09:44 | disposition home or self-care (01) ==
LOC: HO.HMGCX 09:43
PROVIDERS: PCP Internal Medicine; Visit Provider Internal Medicine
DX: S90.32XA Contusion of left foot, initial encounter (principal)
CPT/HCPCS: 73630

== ENCOUNTER 2023-08-28 11:01 | Emergency (ER) | payer OTHER, SELFPAY ==
--- NOTE | ~2023-08-28 | XR_ITS ---
EXAMINATION: XR FINGER, RIGHT CLINICAL INFORMATION: Shallow third fingertip and/or laceration COMPARISON: None available. TECHNIQUE: Three views of the right index finger. FINDINGS: Comminuted displaced fracture involving the tuft of the third distal phalanx. Questionable soft tissue defect along the dorsal tip along the distal nail bed though evaluation is limited secondary to overlying objects. Correlation with physical exam. Joint spaces and alignment are otherwise maintained. XR/XR finger RT min 2V IMPRESSION: 1. Comminuted displaced fracture involving the tuft of the third distal phalanx. 2. Questionable soft tissue defect along the dorsal tip along the distal nail bed though evaluation is limited secondary to overlying objects. Correlation with physical exam.
[2023-08-28 11:13] VITALS: BP 128/76; PULSE 80; RESP 19; TEMP 36.6; O2SAT 98; BMI 29.0
--- NOTE | 2023-08-28 12:36 | ED_ITS ---
HPI - General Adult General Chief complaint: Wound/Laceration Stated complaint: r middle finger laceration Time Seen by Provider: 08/28/23 15:59 Source: patient Mode of arrival: ambulatory Limitations: no limitations History of Present Illness HPI narrative: 48-year-old female presents to the ED for right middle finger laceration. Patient states he slammed the door on her right hand by accident. Patient denies any other symptoms. Related Data Home Medications Medication Instructions Recorded Confirmed cholecalciferol (vitamin D3) 25 25 mcg PO DAILY 12/15/21 04/20/23 mcg (1,000 unit) capsule vitamin E (dl, acetate) 450 mg 450 mg PO DAILY 12/15/21 04/20/23 (1,000 unit) capsule Previous Rx's Medication Instructions Recorded albuterol sulfate 90 mcg/actuation 2 puff PO Q4H PRN Wheezing #6.7 03/09/22 aerosol inhaler grams benzonatate 100 mg capsule 100 mg PO TID PRN cough 10 days 04/20/23 #30 caps ondansetron HCl 4 mg tablet 4 mg PO Q8H PRN nausea and 04/20/23 vomiting 3 days #9 tabs meloxicam 15 mg tablet 15 mg PO DAILY #14 tabs 06/07/23 clindamycin HCl 300 mg capsule 300 mg PO QID 7 days #28 caps 08/28/23 naproxen 500 mg tablet 500 mg PO BID PRN pain 7 days #28 08/28/23 tabs Allergies Allergy/AdvReac Type Severity Reaction Status Date / Time azithromycin [From Zithromax] Allergy Intermediate Anaphylaxis Verified 06/06/23 09:48 morphine [Morphine] Allergy Mild RASH Verified 06/06/23 09:48 penicillin G [Penicillin G] Allergy Mild ANAPHYLAXIS Verified 06/06/23 09:48 penicillin V Allergy Unknown anaphylaxis Verified 06/06/23 09:48 Review of Systems 2 Review of Systems: Right middle finger injury Yes all other systems are reviewed and are negative PMFSH Past Medical History Medical History (Updated 08/29/23 @ 00:00 by Background Daemon) Hx of renal calculi Tension type headache Elevated alkaline phosphatase level Elevated liver enzymes Upper back pain on right side Family history of thyroid disease Hx gestational diabetes Annual visit for general adult medical examination with abnormal findings Mild intermittent asthma Numbness and tingling of both legs Lumbago of lumbar region with sciatica Surgical History History of appendectomy History of eye surgery History of removal of cyst History of tubal ligation Family History Family History Father CVD (cardiovascular disease) Mother No problems noted. Daughter No problems noted. Daughter No problems noted. 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 Current occupational exposures/hazards: No Sexual orientation: Straight/Heterosexual Gender identity: Female Cognitive needs: No Hearing needs: No Vision needs: No Physical Exam ED Vital Signs: Vital Signs - 24 hr 08/28/23 11:13 Temperature 98 F Pulse Rate 80 Respiratory Rate 19 Blood Pressure 128/76 Pulse Oximetry 98 Oxygen Delivery Method Room Air BMI result Body Mass Index 29.0 Const General: cooperative, healthy appearing, comfortable, no acute distress, well developed, alert, awake and Physically active Orientation/consciousness: oriented to person, oriented to place, oriented to time and patient oriented x3 HENMT Head: Yes normal to inspection, Yes No palpable skull fracture present, Yes normocephalic and Yes atraumatic Eyes General: appearance normal, both eyes and all related structures Neck Neck: Yes normal visual inspection, Yes full ROM, Yes no lymphadenopathy, Yes no meningeal signs, Yes trachea midline, Yes supple, No anterior neck swelling and No tender Chest Chest palpation & inspection: normal inspection of the chest and normal palpation of entire chest wall Resp Effort & Inspection: normal respiratory effort and able to speak in complete sentences Cardio Jugular venous distension: no JVD Heart sounds: S1 normal heart sound present and S2 normal heart sound present GI Inspection: Yes normal to inspection Palpation (GI): Soft to palpation, not firm, nontender, no guarding and not rigid General: Yes no CVA tenderness Back/Spine/Pelvis Back: no CVA tenderness and No back tenderness Skin General skin exam: no rashes or lesions noted and elasticity normal Neuro General: oriented to person, oriented to place, oriented to time, patient oriented x3, gait normal, tone normal, moves all extremities, Normal light touch and pain sensation, no meningeal signs, no focal motor deficits, CN's II-XI intact bilaterally and normal sensation to monofilament Extrem General: Yes normal to inspection and Yes full ROM Hand/finger images: 2 1. open laceration. patient has complete range of motion of finger. neuro exam is intact. no other trauma. Extremity motor/ neuro/vascular exam intact Psych Appearance: grossly normal, well kempt and not disheveled Course Course Course Narrative: This is an RME: Additional HPI, ROS, PE not included below will be deferred to primary provider. 48-year-old female presents with complaints of right 3rd finger tip pain the patient jammed into a door. Reports numbness entire finger. Unsure of tetanus status Plan x-ray Medications Administered Discontinued Medications Generic Name Dose Route Start Last Admin Trade Name Freq PRN Reason Stop Dose Admin Diphtheria/Tetanus/Acell Pertussis 0.5 ml 08/28/23 12:38 08/28/23 16:02 Diphth,Pertus(Acell),Tet Adult 0.5 Ml Syringe IM 08/28/23 12:39 0.5 ml .ONCE ONE Administration Lidocaine HCl 2 ml 08/28/23 16:04 08/28/23 17:07 Lidocaine Hcl 2% 2 Ml Vial INFILTRATI 08/28/23 16:05 2 ml ONCE ONE Administration Lidocaine HCl 2 ml 08/28/23 16:04 08/28/23 17:07 Lidocaine Hcl 2% 2 Ml Vial INFILTRATI 08/28/23 16:05 2 ml ONCE ONE Administration Lidocaine HCl 2 ml 08/28/23 16:04 08/28/23 17:07 Lidocaine Hcl 2% 2 Ml Vial INFILTRATI 08/28/23 16:05 2 ml ONCE ONE Administration Lidocaine HCl 2 ml 08/28/23 16:04 08/28/23 17:07 Lidocaine Hcl 2% 2 Ml Vial INFILTRATI 08/28/23 16:05 2 ml ONCE ONE Administration Lidocaine HCl 2 ml 08/28/23 17:01 08/28/23 17:07 Lidocaine Hcl 2% 2 Ml Vial INFILTRATI 08/28/23 17:02 2 ml ONCE ONE Administration Medical Decision Making Medical Decision Making [facility] Narrative: 48-year-old female presents to ED for right middle finger pain/ injury due to slamming door on finger by accident. X-ray shows a tuft fracture. Tdap ordered. Area cleaned with sterile saline and iodine Betadine. lidocaine 6ml used of anethesia digital block. Two sutures nylon loosely placed on laceration. Loosely placed sutures so hand surgeon can go back into wound and address tuft fracture. Patient cannot cannot receive IV Ancef or penicillin due to anaphylactic reaction to was penicillin and azithromycin. Patient will be discharged with clindamycin Differential Diagnosis Differential Diagnoses: The differential diagnosis associated with the presentation includes ( crush injury, hand laceration, distal tuft fracture) Admission/Observation Consideration of admission/observation: Escalation of care including admission/observation considered Independent Interpretation I performed an independent interpretation of an: Plain X-Ray Radiology Impression Discussion of test interpretation with radiology: I have reviewed the radiologist's reading. External Record Review External record reviewed: Other ( prior visit) Prescription Management I considered prescription management with: Pain Medication and Antibiotic Discharge Plan Discharge Clinical Impression: Closed fracture of tuft of distal phalanx of finger Patient Disposition: Home, Self-Care Instructions: Finger Fracture (ED) Additional Instructions: you need to follow-up with hand surgeon. Recommend taking antibiotics you are prescribed. Return to the ED immediately for swelling, redness, foul odor, pus discharge, bluish discoloration, or any other concerning symptoms. Prescriptions: New naproxen 500 mg tablet 500 mg PO BID PRN (Reason: pain) 7 Days Qty: 28 0RF clindamycin HCl 300 mg capsule 300 mg PO QID 7 Days Qty: 28 0RF No Action meloxicam 15 mg tablet 15 mg PO DAILY Qty: 14 0RF cholecalciferol (vitamin D3) 25 mcg (1,000 unit) capsule 25 mcg PO DAILY vitamin E (dl, acetate) 450 mg (1,000 unit) capsule 450 mg PO DAILY albuterol sulfate 90 mcg/actuation HFA aerosol inhaler 2 puff PO Q4H PRN (Reason: Wheezing) Qty: 6.7 0RF benzonatate 100 mg capsule 100 mg PO TID PRN (Reason: cough) 10 Days Qty: 30 1RF ondansetron HCl 4 mg tablet 4 mg PO Q8H PRN (Reason: nausea and vomiting) 3 Days Qty: 9 0RF Referrals: Elisabeth Wallace MD [Physician] - ( Right distal tuft fracture) Stand Alone Forms: Work/School Release Interventions: ED Discharge Assessment Last Done: 08/28/23 18:09 Discharge Date/Time: 08/28/23 18:09 Print Language: Serbian
[2023-08-28] MEDS: Diphth,Pertus(ACell),Tet Adult 0.5 ML SYRINGE IM (16:02)
== END 2023-08-28 18:09 | disposition home or self-care (01) ==
PROVIDERS: Emergency Provider Internal Medicine; PCP Internal Medicine
DX: S61.212A Laceration without foreign body of right middle finger without damage to nail, initial encounter (principal); S60.511A Abrasion of right hand, initial encounter; Y29.XXXA Contact with blunt object, undetermined intent, initial encounter; Y93.9 Activity, unspecified; Y92.9 Unspecified place or not applicable; Y99.9 Unspecified external cause status; Z79.899 Other long term (current) drug therapy; Z23 Encounter for immunization
CPT/HCPCS: 73140; 90471; 90715; 99283; 99284

== ENCOUNTER 2023-08-29 11:59 | Outpatient (AMB) | payer OTHER, SELFPAY ==
[2023-08-29 14:25] VITALS: BP 122/86; PULSE 69; TEMP 36.7; O2SAT 98; BMI 29.6
--- NOTE | 2023-08-29 14:25 | MHC.OFFWIV ---
Intake Vital Signs 08/29/23 14:25 Height 5 ft 6 in Weight 183 lb 6 oz BMI 29.6 BP 122/86 Blood Pressure Location Lt brachial Position Sitting Pulse 69 Pulse Source Pulse Oximeter Temp 98.1 F Temp Source Oral Pulse Oximetry (%) 98 Oxygen Delivery Method Room Air Intake Visit Reasons: EP, right middle laceration Intake Note: Pt presents to the office for c/o right middle finger laceration. Pt states this happened yesterday 08/28/23. Pt states she accidentally shut the door on her finger. Pt was seen at the ER yesterday and was told to come here or back to the ER if the bleeding continued. Patient Tobacco Use Status: Former Tobacco user Allergies azithromycin [From Zithromax] Allergy (Intermediate, Verified 08/29/23 14:29) Anaphylaxis morphine [Morphine] Allergy (Mild, Verified 08/29/23 14:29) RASH penicillin G [Penicillin G] Allergy (Mild, Verified 08/29/23 14:29) ANAPHYLAXIS penicillin V Allergy (Unknown, Verified 08/29/23 14:29) anaphylaxis HPI EP, right middle laceration HPI Details 48-year-old female presents to the office for a sick visit. Patient injured her finger while closing a door. She was diagnosed with a crush injury in the emergency room and is awaiting an appointment with the surgeon for an evaluation. She presents to the office here requesting that her wound be cleaned. [facility], LATER [facility] Medical History Hx of renal calculi Tension type headache Elevated alkaline phosphatase level Elevated liver enzymes Upper back pain on right side Family history of thyroid disease Hx gestational diabetes Annual visit for general adult medical examination with abnormal findings Mild intermittent asthma Numbness and tingling of both legs Lumbago of lumbar region with sciatica Surgical History History of removal of cyst History of eye surgery History of tubal ligation History of appendectomy Family History Father CVD (cardiovascular disease) Mother No problems noted. Daughter No problems noted. Daughter No problems noted. 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 On opening the wound it was dried blood over the wound and the cloth bandage was stuck to it. Assessment & Plan Assessment & Plan (1) Wound, open, finger: Code(s): S61.209A - Unspecified open wound of unspecified finger without damage to nail, initial encounter Plan: wound was cleaned with Betadine and hydrogen peroxide. Patient was feeling intense pain and using a scissor some fragments or threads from the clot bandage were removed. Patient did not want the wound wrapped with nonstick bandage. After the wound was wrapped, patient felt that she wanted to go back to the ED. She was given a note for work. Coding Level of Care Code Est Pt Level 3 (55845) Diagnoses Wound, open, finger S61.209A
== END 2023-08-29 15:17 | disposition home or self-care (01) ==
PROVIDERS: PCP Internal Medicine; Visit Provider Internal Medicine
DX: S61.209A Unspecified open wound of unspecified finger without damage to nail, initial encounter (principal)
CPT/HCPCS: 99213

== ENCOUNTER 2023-08-29 15:37 | Emergency (ER) | payer OTHER, SELFPAY ==
[2023-08-29 16:36] VITALS: BP 153/99; PULSE 71; RESP 20; TEMP 36.4; O2SAT 100; BMI 29.0
--- NOTE | 2023-08-29 16:36 | ED_ITS ---
HPI - General Adult General Chief complaint: Skin/Abscess/Foreign Body Stated complaint: R middle finger broken/ seen 08/28 for same Time Seen by Provider: 08/29/23 16:54 Source: patient and RN notes reviewed Mode of arrival: ambulatory Limitations: no limitations History of Present Illness HPI narrative: This is a 48-year-old female presenting to the emergency department for evaluation of wound check. Patient was seen yesterday for a closed fracture of the tuft of the distal phalanx of her right middle finger. Patient went to Urgent Care Clinic as she was bleeding through her bandage. She states that she was not impressed with the care that she was receiving, therefore she due to the emergency room to have this wound cleansed and wrapped. She has been taking antibiotics. She called Dr. Wallace office who is currently reviewing her record and will call her back for an appointment. No fevers or chills. No new injury. No other complaints or concerns at this time. MD complaint: Wound check Location: upper extremity Radiation: non-radiation Relieving factors: none Exacerbating factors: none Associated symptoms: denies other symptoms Treatments prior to arrival: none Related Data Home Medications Medication Instructions Recorded Confirmed cholecalciferol (vitamin D3) 25 25 mcg PO DAILY 12/15/21 04/20/23 mcg (1,000 unit) capsule vitamin E (dl, acetate) 450 mg 450 mg PO DAILY 12/15/21 04/20/23 (1,000 unit) capsule Previous Rx's Medication Instructions Recorded albuterol sulfate 90 mcg/actuation 2 puff PO Q4H PRN Wheezing #6.7 03/09/22 aerosol inhaler grams benzonatate 100 mg capsule 100 mg PO TID PRN cough 10 days 04/20/23 #30 caps ondansetron HCl 4 mg tablet 4 mg PO Q8H PRN nausea and 04/20/23 vomiting 3 days #9 tabs clindamycin HCl 300 mg capsule 300 mg PO QID 7 days #28 caps 08/28/23 naproxen 500 mg tablet 500 mg PO BID PRN pain 7 days #28 08/28/23 tabs Allergies Allergy/AdvReac Type Severity Reaction Status Date / Time azithromycin [From Zithromax] Allergy Intermediate Anaphylaxis Verified 08/29/23 14:29 morphine [Morphine] Allergy Mild RASH Verified 08/29/23 14:29 penicillin G [Penicillin G] Allergy Mild ANAPHYLAXIS Verified 08/29/23 14:29 penicillin V Allergy Unknown anaphylaxis Verified 08/29/23 14:29 Review of Systems Review of Systems: Yes all other systems are reviewed and are negative [facility] Past Medical History Medical History Hx of renal calculi Tension type headache Elevated alkaline phosphatase level Elevated liver enzymes Upper back pain on right side Family history of thyroid disease Hx gestational diabetes Annual visit for general adult medical examination with abnormal findings Mild intermittent asthma Numbness and tingling of both legs Lumbago of lumbar region with sciatica Surgical History History of removal of cyst History of eye surgery History of tubal ligation History of appendectomy Family History Family History Father CVD (cardiovascular disease) Mother No problems noted. Daughter No problems noted. Daughter No problems noted. 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 No acute distress. HEENT: Normal inspection CVS: Normal heart rate and rhythm. Pulses normal. Respiratory: No respiratory distress Skin: Warm, dry, no rashes noted to exposed skin. Normal skin color. Normal skin turgor. Extremities: Right third finger, DIP with small, healing laceration with suture s in place, no active bleeding or discharge. Neuro: Oriented X 3. No motor deficit. No sensory deficit. Medical Decision Making Medical Decision Making MDM Narrative: 48-year-old female presenting to the emergency department for evaluation of right finger wound check. Patient was seen in the emergency room yesterday where she had stitches placed and was told to follow-up with Orthopedics. She is awaiting a return phone call from orthopedics. She went to an urgent care as her finger started to bleed through the bandage. She states that the area was cleansed and poorly wrapped. She is in the emergency room today as she would like the wound to be cleaned and rewrapped. Wound does not appear infected, she has been taking antibiotics as prescribed. Wound gently cleanse with saline and Betadine, dressed with nonadherent dressing and gauze wrap. Discussed return precautions. Patient understands and agrees with plan. Patient stable for discharge. Differential Diagnosis Differential Diagnoses: The differential diagnosis associated with the presentation includes Wound dehiscence, cellulitis, abscess, wound check Discharge Plan Discharge Clinical Impression: Visit for wound check, Closed fracture of tuft of distal phalanx of finger Patient Disposition: Home, Self-Care Additional Instructions: Please follow-up with the hand surgeon. Continue taking antibiotics as directed. Return to the emergency department for any new redness, swelling, foul odor, drainage, bluish discoloration, or any other concerning symptoms. Prescriptions: No Action naproxen 500 mg tablet 500 mg PO BID PRN (Reason: pain) 7 Days Qty: 28 0RF clindamycin HCl 300 mg capsule 300 mg PO QID 7 Days Qty: 28 0RF cholecalciferol (vitamin D3) 25 mcg (1,000 unit) capsule 25 mcg PO DAILY vitamin E (dl, acetate) 450 mg (1,000 unit) capsule 450 mg PO DAILY albuterol sulfate 90 mcg/actuation HFA aerosol inhaler 2 puff PO Q4H PRN (Reason: Wheezing) Qty: 6.7 0RF benzonatate 100 mg capsule 100 mg PO TID PRN (Reason: cough) 10 Days Qty: 30 1RF ondansetron HCl 4 mg tablet 4 mg PO Q8H PRN (Reason: nausea and vomiting) 3 Days Qty: 9 0RF Interventions: ED Discharge Assessment Last Done: 08/29/23 16:58 Discharge Date/Time: 08/29/23 17:08
== END 2023-08-29 17:08 | disposition home or self-care (01) ==
LOC: HO.ED 17:01
PROVIDERS: Emergency Provider Student in an Organized Health Care Education/Training Program; PCP Internal Medicine
DX: S62.632A Displaced fracture of distal phalanx of right middle finger, initial encounter for closed fracture (principal); Z48.00 Encounter for change or removal of nonsurgical wound dressing; X58.XXXA Exposure to other specified factors, initial encounter; Y93.9 Activity, unspecified; Y92.9 Unspecified place or not applicable; Y99.9 Unspecified external cause status
CPT/HCPCS: 99282

== ENCOUNTER 2023-09-01 14:08 | Outpatient (AMB) | payer OTHER, SELFPAY ==
--- NOTE | 2023-09-01 14:13 | A.OFFVIS_ITS ---
Intake Vital Signs 09/01/23 14:15 Height 5 ft 6 in Weight 180 lb BMI 29.0 Intake Visit Reasons: N/P [facility] fx RT MF Intake Note: Dorita figueroa 48 year old female presents today as a new patient for an evaluation of right MF fracture, DOI 08/28/23. Allergies azithromycin [From Zithromax] Allergy (Intermediate, Verified 08/29/23 14:29) Anaphylaxis morphine [Morphine] Allergy (Mild, Verified 08/29/23 14:29) RASH penicillin G [Penicillin G] Allergy (Mild, Verified 08/29/23 14:29) ANAPHYLAXIS penicillin V Allergy (Unknown, Verified 08/29/23 14:29) anaphylaxis HPI N/P [facility] fx RT MF HPI Details 48-year-old female who presents in the [facility] today, as a new patient, for an evaluation of a right middle finger laceration. The patient presented to the ED on 08/28/2023 status post slamming her right hand in a door by accident. X-rays of the right hand were obtained. The area was cleaned and two sutures were loosely applied. She was prescribed clindamycin 30 mg PO QID and naproxen 500 mg PO BID PRN. She presented to the ED on 08/29/2023 requesting for her wound to be cleaned. The wound was cleaned with Betadine and hydrogen peroxide. The patient did not want the wound wrapped with nonstick bandage. After the wound was wrapped, patient felt that she wanted to go back to the ED. She returned to the ED on 08/29/2023 for a wound check and another request for the wound to be cleaned and wrapped. Wound gently cleanse with saline and Betadine, dressed with non- adherent dressing and gauze wrap. [facility] Medical History Hx of renal calculi Tension type headache Elevated alkaline phosphatase level Elevated liver enzymes Upper back pain on right side Family history of thyroid disease Hx gestational diabetes Annual visit for general adult medical examination with abnormal findings Mild intermittent asthma Numbness and tingling of both legs Lumbago of lumbar region with sciatica Surgical History History of removal of cyst History of eye surgery History of tubal ligation History of appendectomy Family History Father CVD (cardiovascular disease) Mother No problems noted. Daughter No problems noted. Daughter No problems noted. 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 Current occupational exposures/hazards: No Sexual orientation: Straight/Heterosexual Gender identity: Female Cognitive needs: No Hearing needs: No Vision needs: No Review of Systems Const All systems reviewed & are unremarkable except as noted in HPI and below Physical Exam Vital Signs: BMI result Body Mass Index 29.0 Const General: cooperative and no acute distress Orientation/consciousness: patient oriented x3 Resp Effort & Inspection: normal respiratory effort and able to speak in complete sentences Cardio Peripheral pulses: Peripheral pulses 2+ throughout Skin General skin exam: no rashes or lesions noted Neuro General: patient oriented x3 Extrem Other: Right middle finger: Nail bed disruption with laceration along the lateral aspect of the nail. Able to flex and extend at the DIP, PIP, CMC. No signs of infection. No erythema or drainage. Pinky perfusing tissue. Sensation reportedly numbness and tingling at the DIP distally. Office Procedures Fracture Care Fracture Billing Code: Fracture Billing Code Assessment & Plan Assessment & Plan (1) Fracture of phalanx of right middle finger: Code(s): S62.602A - Fracture of unspecified phalanx of right middle finger, initial encounter for closed fracture Qualifiers: Encounter type: initial encounter Fracture alignment: nondisplaced Fracture type: open Phalanx: unspecified phalanx Qualified Code(s): S62.602B - Fracture of unspecified phalanx of right middle finger, initial encounter for open fracture (2) Wound, open, finger: Code(s): S61.209A - Unspecified open wound of unspecified finger without damage to nail, initial encounter Qualifiers: Encounter type: initial encounter Qualified Code(s): S61.209A - Unspecified open wound of unspecified finger without damage to nail, initial encounter Plan Ms. Kevin is a 48-year-old female who presents in the office today, as a new patient, for an evaluation of a right middle finger laceration. The patient presented to the ED on 08/28/2023 status post slamming her right hand in a door by accident. X-rays of the right hand were obtained. The area was cleaned and two sutures were loosely applied. She was prescribed clindamycin 30 mg PO QID and naproxen 500 mg PO BID PRN. She presented to the ED on 08/29/2023 requesting for her wound to be cleaned. The wound was cleaned with Betadine and hydrogen peroxide. The patient did not want the wound wrapped with nonstick bandage. After the wound was wrapped, patient felt that she wanted to go back to the ED. She returned to the ED on 08/29/2023 for a wound check and another request for the wound to be cleaned and wrapped. Wound gently cleanse with saline and Betadine, dressed with non-adherent dressing and gauze wrap. Sutures will remain in place. She will perform daily dressing changes. The wound was dressed while in the office today with xeroform, non-stick gauze, and coban. She should continue to take the antibiotic. However, she does reports diarrhea therefore, I have recommended probiotics. She should also take the antibiotics with food. She was educated on signs of infection, which are as follows but not limited to erythema, edema, drainage, or warmth. If she is to experience any of these symptoms she is to contact the office immediately or present to the ED. Follow up will be in 1 week for a wound check, or sooner if needed. X-rays of the right hand, obtained on 08/28/2023, revealed: 1. Comminuted displaced fracture involving the tuft of the third distal phalanx. 2. Questionable soft tissue defect along the dorsal tip along the distal nail bed though evaluation is limited secondary to overlying objects. Correlation with physical exam. Patient Instructions: Scribed for Nedra Ramos PA-C by Ly Gupta ophthalmic medical technician, on 08/30/2023 at 2:15 pm, EST. Coding Level of Care Code New Pt Level 4 (52165) Diagnoses Open nondisplaced fracture of phalanx of right middle finger, unspecified phalanx, initial encounter S62.602B Encounter type: initial encounter Fracture alignment: nondisplaced Fracture type: open Phalanx: unspecified phalanx Open wound of finger, initial encounter S61.209A Encounter type: initial encounter CPT Codes Fracture Care - Fracture Billing Code: Fracture Billing Code ([id number])
[2023-09-01 14:15] VITALS: BMI 29.0
== END 2023-09-01 14:25 | disposition home or self-care (01) ==
PROVIDERS: PCP Internal Medicine; Visit Provider Physician Assistant
DX: S62.632A Displaced fracture of distal phalanx of right middle finger, initial encounter for closed fracture (principal); S61.212A Laceration without foreign body of right middle finger without damage to nail, initial encounter
CPT/HCPCS: 99204

== ENCOUNTER → 2023-09-01 14:08 | Outpatient (BNVA) | payer OTHER, SELFPAY | PROVIDERS: PCP Internal Medicine; Visit Provider Physician Assistant | DX: S62.602A Fracture of unspecified phalanx of right middle finger, initial encounter for closed fracture (principal); S61.302A Unspecified open wound of right middle finger with damage to nail, initial encounter | CPT/HCPCS: 99202 ==

== ENCOUNTER 2023-09-07 09:56 | Outpatient (REF) | payer OTHER, SELFPAY ==
--- NOTE | ~2023-09-07 | XR_ITS ---
EXAMINATION: XR HAND, RIGHT CLINICAL INFORMATION: Pain, fracture third digit. COMPARISON: 08/28/2023. TECHNIQUE: PA, lateral, and oblique views of the right hand. FINDINGS: Redemonstration of a comminuted displaced fracture of the distal tuft of the third digit with soft tissue swelling. Fracture lines are slightly less distinct, suggesting some interval healing. There is possible slight attenuation of the overlying soft tissues along the dorsal tip of the digit. XR/XR hand RT min 3V IMPRESSION: Comminuted fracture of the distal tuft of the third digit with suggestion of mild interval healing.
== END 2023-09-07 09:57 | disposition home or self-care (01) ==
LOC: HO.HOSX 09:56
PROVIDERS: Visit Provider Physician Assistant
DX: M79.641 Pain in right hand (principal)
CPT/HCPCS: 73130

== ENCOUNTER 2023-09-08 11:02 | Outpatient (AMB) | payer OTHER, SELFPAY ==
[2023-09-08 11:16] VITALS: BMI 29.0
--- NOTE | 2023-09-08 11:16 | A.OFFVIS_ITS ---
Intake Vital Signs 09/08/23 11:16 Height 5 ft 6 in Weight 180 lb BMI 29.0 Intake Visit Reasons: ov-Tuft of distal phalanx Intake Note: Dorita figueroa 48 year old female presents today for a follow up of her right MF fracture, DOI 08/28/23. Patient reports still having pain and is unable to sleep at night. She states her pain is worse at night which keeps her up through the night. 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 Having concerns of still having diarrhea. Allergies azithromycin [From Zithromax] Allergy (Intermediate, Verified 09/08/23 11:21) Anaphylaxis morphine [Morphine] Allergy (Mild, Verified 09/08/23 11:21) RASH penicillin G [Penicillin G] Allergy (Mild, Verified 09/08/23 11:21) ANAPHYLAXIS penicillin V Allergy (Unknown, Verified 09/08/23 11:21) anaphylaxis HPI ov-Tuft of distal phalanx HPI Details 48-year-old female who presents in the o ffice today for a follow up of right middle phalanx fracture, which occurred on 08/28/2023 status post slamming her right hand in a door by accident. While in the office today the patient reports she is still having pain and is unable to sleep at night. She claims the pain increases at night. 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 She expresses concern for continued diarrhea. [facility] Medical History Hx of renal calculi Tension type headache Elevated alkaline phosphatase level Elevated liver enzymes Upper back pain on right side Family history of thyroid disease Hx gestational diabetes Annual visit for general adult medical examination with abnormal findings Mild intermittent asthma Numbness and tingling of both legs Lumbago of lumbar region with sciatica Surgical History History of removal of cyst History of eye surgery History of tubal ligation History of appendectomy Family History Father CVD (cardiovascular disease) Mother No problems noted. Daughter No problems noted. Daughter No problems noted. 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 [employer] Current occupational exposures/hazards: No Sexual orientation: Straight/Heterosexual Gender identity: Female Cognitive needs: No Hearing needs: No Vision needs: No Review of Systems Const All systems reviewed & are unremarkable except as noted in HPI and below Physical Exam Vital Signs: BMI result Body Mass Index 29.0 Const General: cooperative, healthy appearing and no acute distress Resp Effort & Inspection: normal respiratory effort and able to speak in complete sentences Cardio Rate: regular rate Peripheral pulses: Peripheral pulses 2+ throughout GI Palpation (GI): Soft to palpation Skin Lesions: no lesions Rashes: no rashes Extrem Other: Right middle finger: Nail bed disruption with laceration along the lateral aspect of the nail. Able to flex and extend at the DIP, PIP, CMC. No signs of infection. No erythema or drainage. Pinky perfusing tissue. Sensation reportedly numbness and tingling at the DIP distally. Assessment & Plan Assessment & Plan (1) Fracture of phalanx of right middle finger: Code(s): S62.602A - Fracture of unspecified phalanx of right middle finger, initial encounter for closed fracture Qualifiers: Encounter type: initial encounter Fracture alignment: nondisplaced Fracture type: open Phalanx: unspecified phalanx Qualified Code(s): S62.602B - Fracture of unspecified phalanx of right middle finger, initial encounter for open fracture (2) Wound, open, finger: Code(s): S61.209A - Unspecified open wound of unspecified finger without damage to nail, initial encounter Qualifiers: Encounter type: initial encounter Qualified Code(s): S61.209A - Unspecified open wound of unspecified finger without damage to nail, initial encounter Plan Ms. Watters is a 48-year-old female who presents in the office today for a follow up of right middle phalanx fracture, which occurred on 08/28/2023 status post slamming her right hand in a door by accident. While in the office today the patient reports she is still having pain and is unable to sleep at night. She claims the pain increases at night. 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 She expresses concern for continued diarrhea. Sutures were removed. Patient was very anxious about this and had difficulty tolerating suture removal. She has completed her course of antibiotics. She was educated on signs of infection, which are as follows but not limited to erythema, edema, drainage, or warmth. If she is to experience any of these symptoms she is to contact the office immediately or present to the ED. She was given a work note stating no use of the right hand. The patient is also reporting diarrhea and I have re-educated her about taking probiotics. Also should her symptoms continue or worsen I have instructed her to reach out to her PCP. Follow up will be in 1 week for a wound check, or sooner if needed. X-rays of the right hand which were obtained while in the office today and were reviewed by me, Nedra Ramos PA-C, revealed routine healing of a right middle phalanx fracture. Orders: Orders XR hand RT min 3V Today M79.643 - Pain in unspecified hand Patient Instructions: Scribed for Nedra Ramos PA-C by Ly Gupta medical office receptionist assistant, on 09/08/2023 at 11:07 am, EST. Coding Level of Care Code Global (32187) Diagnoses Open nondisplaced fracture of phalanx of right middle finger, unspecified phalanx, initial encounter S62.602B Encounter type: initial encounter Fracture alignment: nondisplaced Fracture type: open Phalanx: unspecified phalanx Open wound of finger, initial encounter S61.209A Encounter type: initial encounter
== END 2023-09-08 12:28 | disposition home or self-care (01) ==
PROVIDERS: PCP Internal Medicine; Visit Provider Physician Assistant
DX: S62.602B Fracture of unspecified phalanx of right middle finger, initial encounter for open fracture (principal)
CPT/HCPCS: 99213

== ENCOUNTER → 2023-09-08 11:02 | Outpatient (BNVA) | payer OTHER, SELFPAY | PROVIDERS: PCP Internal Medicine; Visit Provider Physician Assistant | DX: S62.602D Fracture of unspecified phalanx of right middle finger, subsequent encounter for fracture with routine healing (principal); S61.312D Laceration without foreign body of right middle finger with damage to nail, subsequent encounter | CPT/HCPCS: 99212 ==

== ENCOUNTER 2023-09-15 15:19 | Outpatient (AMB) | payer OTHER, SELFPAY ==
--- NOTE | 2023-09-15 15:25 | A.OFFVIS_ITS ---
Intake Intake Visit Reasons: ov-Fx of phalanx of right middle finger Intake Note: Dorita 48 year old female presents today for a follow up of her right MF fracture, DOI 08/28/23. States she has been doing her finger exercise and is doing better. Allergies azithromycin [From Zithromax] Allergy (Intermediate, Verified 09/15/23 15:28) Anaphylaxis morphine [Morphine] Allergy (Mild, Verified 09/15/23 15:28) RASH penicillin G [Penicillin G] Allergy (Mild, Verified 09/15/23 15:28) ANAPHYLAXIS penicillin V Allergy (Unknown, Verified 09/15/23 15:28) anaphylaxis HPI ov-Fx of phalanx of right middle finger HPI Details 48-year-old female who presents in the [facility] today for a follow up of right middle phalanx fracture, which occurred on 08/28/2023 status post slamming her right hand in a door by accident. The patient states she has been doing her finger exercises and is doing better. [facility] Medical History Hx of renal calculi Tension type headache Elevated alkaline phosphatase level Elevated liver enzymes Upper back pain on right side Family history of thyroid disease Hx gestational diabetes Annual visit for general adult medical examination with abnormal findings Mild intermittent asthma Numbness and tingling of both legs Lumbago of lumbar region with sciatica Surgical History History of removal of cyst History of eye surgery History of tubal ligation History of appendectomy Family History Father CVD (cardiovascular disease) Mother No problems noted. Daughter No problems noted. Daughter No problems noted. 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 Current occupational exposures/hazards: No Sexual orientation: Straight/Heterosexual Gender identity: Female Cognitive needs: No Hearing needs: No Vision needs: No Review of Systems Const All systems reviewed & are unremarkable except as noted in HPI and below Physical Exam Const General: cooperative, healthy appearing and no acute distress Resp Effort & Inspection: normal respiratory effort and able to speak in complete sentences Cardio Rate: regular rate Peripheral pulses: Peripheral pulses 2+ throughout GI Palpation (GI): Soft to palpation Skin Lesions: no lesions Rashes: no rashes Extrem Other: Right middle finger: Nail bed disruption with hearing laceration along the lateral aspect of the nail which has health eschar tissue. Able to flex and extend at the DIP, PIP, CMC. No signs of infection. No erythema or drainage. Pinky perfusing tissue. Sensation reportedly numbness and tingling at the DIP distally. Assessment & Plan Assessment & Plan (1) Fracture of phalanx of right middle finger: Code(s): S62.602A - Fracture of unspecified phalanx of right middle finger, initial encounter for closed fracture Qualifiers: Encounter type: initial encounter Fracture alignment: nondisplaced Fracture type: open Phalanx: unspecified phalanx Qualified Code(s): S62.602B - Fracture of unspecified phalanx of right middle finger, initial encounter for open fracture (2) Wound, open, finger: Code(s): S61.209A - Unspecified open wound of unspecified finger without damage to nail, initial encounter Qualifiers: Encounter type: initial encounter Qualified Code(s): S61.209A - Unspecified open wound of unspecified finger without damage to nail, initial encounter Plan Ms. Watters is a 48-year-old female who presents in the office today for a follow up of right middle phalanx fracture, which occurred on 08/28/2023 status post slamming her right hand in a door by accident. The patient states she has been doing her finger exercises and is doing better. The patient will continue to keep the area clean, dry, and intact. She is able to wash her hands but no submerging, no dish duty, no bath, or hot tubes. Follow up will be in 1 week for anticipated final wound check, or sooner if needed. Patient Instructions: Scribed for Nedra Ramos PA-C by Ly Gupta director of graduate medical education, on 09/15/2023 at 3:24 pm, EST. Coding Level of Care Code Est Pt Level 3 (98038) Diagnoses Open nondisplaced fracture of phalanx of right middle finger, unspecified phalanx, initial encounter S62.602B Encounter type: initial encounter Fracture alignment: nondisplaced Fracture type: open Phalanx: unspecified phalanx Open wound of finger, initial encounter S61.209A Encounter type: initial encounter
== END 2023-09-15 15:30 | disposition home or self-care (01) ==
PROVIDERS: PCP Internal Medicine; Visit Provider Physician Assistant
DX: S62.602B Fracture of unspecified phalanx of right middle finger, initial encounter for open fracture (principal)
CPT/HCPCS: 99213

== ENCOUNTER → 2023-09-15 15:19 | Outpatient (BNVA) | payer OTHER, SELFPAY | PROVIDERS: PCP Internal Medicine; Visit Provider Physician Assistant | DX: S62.622D Displaced fracture of middle phalanx of right middle finger, subsequent encounter for fracture with routine healing (principal); S61.312D Laceration without foreign body of right middle finger with damage to nail, subsequent encounter | CPT/HCPCS: 99212 ==

== ENCOUNTER 2023-09-26 14:05 | Outpatient (AMB) | payer OTHER, SELFPAY ==
--- NOTE | 2023-09-26 14:07 | A.OFFVIS_ITS ---
Intake Intake Visit Reasons: ov-Fx of phalanx of right middle finger Intake Note: Dorita 48 year old female presents today for a follow up of her right MF fracture, DOI 08/28/23. Patient reports she is doing a bit better. She has been making a fist to keep her finger moving. She has a concern about how it looks on the side of the middle finger. Allergies azithromycin [From Zithromax] Allergy (Intermediate, Verified 09/26/23 14:07) Anaphylaxis morphine [Morphine] Allergy (Mild, Verified 09/26/23 14:07) RASH penicillin G [Penicillin G] Allergy (Mild, Verified 09/26/23 14:07) ANAPHYLAXIS penicillin V Allergy (Unknown, Verified 09/26/23 14:07) anaphylaxis HPI ov-Fx of phalanx of right middle finger HPI Details 48-year-old female who presents in the o ice today for a follow up of right middle phalanx fracture, which occurred on 08/28/2023 status post slamming her right hand in a door by accident. The patient reports she is doing a bit better. She states she has been making a fist to keep her fingers moving. She states she is concerned about the way her right middle digit looks. [facility] Medical History Hx of renal calculi Tension type headache Elevated alkaline phosphatase level Elevated liver enzymes Upper back pain on right side Family history of thyroid disease Hx gestational diabetes Annual visit for general adult medical examination with abnormal findings Mild intermittent asthma Numbness and tingling of both legs Lumbago of lumbar region with sciatica Surgical History History of removal of cyst History of eye surgery History of tubal ligation History of appendectomy Family History Father CVD (cardiovascular disease) Mother No problems noted. Daughter No problems noted. Daughter No problems noted. 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 Current occupational exposures/hazards: No Sexual orientation: Straight/Heterosexual Gender identity: Female Cognitive needs: No Hearing needs: No Vision needs: No Review of Systems Const All systems reviewed & are unremarkable except as noted in HPI and below Physical Exam Const General: cooperative, healthy appearing and no acute distress Resp Effort & Inspection: normal respiratory effort and able to speak in complete sentences Cardio Rate: regular rate Peripheral pulses: Peripheral pulses 2+ throughout GI Palpation (GI): Soft to palpation Skin Lesions: no lesions Rashes: no rashes Extrem Other: Right middle finger: Nail bed disruption with healing laceration along the lateral aspect of the nail which has healthy eschar tissue. Able to flex and extend at the DIP, PIP, CMC. No signs of infection. No erythema or drainage. Pinky perfusing tissue. Sensation reported numbness and tingling at the DIP distally. Assessment & Plan Assessment & Plan (1) Fracture of phalanx of right middle finger: Code(s): S62.602A - Fracture of unspecified phalanx of right middle finger, initial enco unter for closed fracture Qualifiers: Encounter type: initial encounter Fracture alignment: nondisplaced Fracture type: open Phalanx: unspecified phalanx Qualified Code(s): S62.602B - Fracture of unspecified phalanx of right middle finger, initial encounter for open fracture (2) Wound, open, finger: Code(s): S61.209A - Unspecified open wound of unspecified finger without damage to nail, initial encounter Qualifiers: Encounter type: initial encounter Qualified Code(s): S61.209A - Unspecified open wound of unspecified finger without damage to nail, initial encounter Plan Ms. Watters is a 48-year-old female who presents in the office today for a follow up of right middle phalanx fracture, which occurred on 08/28/2023 status post slamming her right hand in a door by accident. The patient reports she is doing a bit better. She states she has been making a fist to keep her fingers moving. She states she is concerned about the way her right middle digit looks. The patient was instructed to allow the area to continue to heal on its own. She was educated on signs of infection, which are as follows but not limited to erythema, edema, drainage, or warmth. If she is to experience any of these symptoms she is to contact the office immediately or present to the ED. Otherwise, I anticipate the patient will continue to have healing of the laceration and no additional orthopedic intervention is needed. Follow up will be PRN, or sooner if needed. Patient Instructions: Scribed for Nedra Ramos PA-C by Ly Gupta medical sales, on 09/26/2023 at 2:11 pm, EST. Coding Level of Care Code Est Pt Level 3 (70788) Diagnoses Open nondisplaced fracture of phalanx of right middle finger, unspecified phalanx, initial encounter S62.602B Encounter type: initial encounter Fracture alignment: nondisplaced Fracture type: open Phalanx: unspecified phalanx Open wound of finger, initial encounter S61.209A Encounter type: initial encounter
== END 2023-09-26 14:23 | disposition home or self-care (01) ==
PROVIDERS: PCP Internal Medicine; Visit Provider Physician Assistant
DX: S62.602B Fracture of unspecified phalanx of right middle finger, initial encounter for open fracture (principal)
CPT/HCPCS: 99213

== ENCOUNTER → 2023-09-26 14:05 | Outpatient (BNVA) | payer OTHER, SELFPAY | PROVIDERS: PCP Internal Medicine; Visit Provider Physician Assistant | DX: M79.643 Pain in unspecified hand (principal); S62.602B Fracture of unspecified phalanx of right middle finger, initial encounter for open fracture; W23.0XXA Caught, crushed, jammed, or pinched between moving objects, initial encounter; Y93.89 Activity, other specified; Y92.9 Unspecified place or not applicable; Y99.9 Unspecified external cause status | CPT/HCPCS: 99212 ==

== ENCOUNTER 2023-09-27 10:41 | Outpatient (REF) | payer OTHER, SELFPAY | END 2023-09-27 10:42 | disposition home or self-care (01) | LOC: HO.HOSX 10:41 | PROVIDERS: Visit Provider Physician Assistant | DX: Z13.89 Encounter for screening for other disorder (principal) ==

== ENCOUNTER 2023-10-17 10:50 | Outpatient (REF) | payer OTHER, SELFPAY | END 2023-10-17 10:51 | disposition home or self-care (01) | LOC: HO.HOSX 10:50 | PROVIDERS: Visit Provider Physician Assistant | DX: Z13.89 Encounter for screening for other disorder (principal) ==

== ENCOUNTER 2023-11-12 03:01 | Emergency (ER) | payer OTHER, SELFPAY ==
[2023-11-12 03:13] VITALS: BP 132/80; PULSE 68; O2SAT 98
[2023-11-12 03:17] VITALS: BP 143/85; PULSE 77; RESP 18; TEMP 36.5; O2SAT 100; BMI 29.9
--- NOTE | 2023-11-12 03:43 | ED.NAVMDI ---
HPI - Nausea/Vomiting/Diarrhea General Chief complaint: Nausea/Vomiting/Diarrhea Stated complaint: ABD PAIN NAUSEA AND VOMITING Time Seen by Provider: 11/12/23 03:37 Source: patient Mode of arrival: EMS Limitations: no limitations History of Present Illness HPI Narrative: 48 yo female who ate at crab pot in [facility] then before bed started to feel ill and not well she abruptly woke up with chills and n/v/d with abdominal cramps. no sick contacts, travel, antibiotic use. MD elicited complaint: nausea, vomiting, diarrhea and abdominal pain Onset (ago): hour(s) (couple) Description of vomiting: food contents, watery and bilious Description of diarrhea: watery Associated nausea: Yes Associated abdominal pain: Yes Location of pain: diffuse Radiation: diffuse Pain consistency: intermittent Severity: moderate Quality: cramping Exacerbating factors: eating Relieving factors: none Context: possible food poisoning Associated symptoms: loss of appetite, malaise, nausea/vomiting and weakness Related Data Home Medications Medication Instructions Recorded Confirmed cholecalciferol (vitamin D3) 25 25 mcg PO DAILY 12/15/21 04/20/23 mcg (1,000 unit) capsule vitamin E (dl, acetate) 450 mg 450 mg PO DAILY 12/15/21 04/20/23 (1,000 unit) capsule Previous Rx's Medication Instructions Recorded albuterol sulfate 90 mcg/actuation 2 puff PO Q4H PRN Wheezing #6.7 03/09/22 aerosol inhaler grams benzonatate 100 mg capsule 100 mg PO TID PRN cough 10 days 04/20/23 #30 caps ondansetron HCl 4 mg tablet 4 mg PO Q8H PRN nausea and 04/20/23 vomiting 3 days #9 tabs clindamycin HCl 300 mg capsule 300 mg PO QID 7 days #28 caps 08/28/23 naproxen 500 mg tablet 500 mg PO BID PRN pain 7 days #28 08/28/23 tabs ondansetron 4 mg disintegrating 4 mg PO Q8H PRN nausea and 11/12/23 tablet vomiting #20 tabs Allergies Allergy/AdvReac Type Severity Reaction Status Date / Time azithromycin [From Zithromax] Allergy Intermediate Anaphylaxis Verified 09/26/23 14:07 morphine [Morphine] Allergy Mild RASH Verified 09/26/23 14:07 penicillin G [Penicillin G] Allergy Mild ANAPHYLAXIS Verified 09/26/23 14:07 penicillin V Allergy Unknown anaphylaxis Verified 09/26/23 14:07 Review of Systems Review of Systems: Constitutional : No Weight loss, No Fever, No Chills ENT/Mouth : No sore throat, No Rhinorrhea Eyes: No Swelling, No Redness Cardiovascular : No Chest Pain, No SOB, NoEdema Respiratory : No Cough, No Sputum, No Wheezing Gastrointestinal : Positive Nausea, Positive Vomiting, positive Diarrhea, positive abdominal Pain, No Hematochezia, No Melena Genitourinary : No Dysuria, No Urinary Frequency, No Hematuria, No Urgency Musculoskeletal : No joint pain, No Myalgias, No Joint Swelling Skin : No Skin Lesions, No rash Neuro : No Weakness, No Numbness, No Dizziness, No Headache Psych : No Anxiety/Panic, No Depression All other systems reviewed and are negative. Gastrointestinal: Gastrointestinal: Reports nausea PMFSH Past Medical History Attestation statement: The following information was validated with the patient. Source: old records reviewed Onset Date is defined in the Problem List Problems that require an onset date and time if occurred within 24 hrs of arrival to the ED Aortic Dissection and Rupture; Neurologic impairment; Cardiopulmonary Arrest; Endotracheal Intubation; Insertion or Replacement of Mechanical Circulatory Assist Device Medical History Hx of renal calculi Tension type headache Elevated alkaline phosphatase level Elevated liver enzymes Upper back pain on right side Family history of thyroid disease Hx gestational diabetes Annual visit for general adult medical examination with abnormal findings Mild intermittent asthma Numbness and tingling of both legs Lumbago of lumbar region with sciatica Surgical History History of removal of cyst History of eye surgery History of tubal ligation History of appendectomy Family History Family History Father CVD (cardiovascular disease) Mother No problems noted. Daughter No problems noted. Daughter No problems noted. 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 Oriented X3. Mild acute distress. active bilious vomiting Eyes: Pupils equal, round and reactive to light. ENT: Pharynx dry MM. Neck: Normal inspection. Neck supple. CVS: Normal heart rate and rhythm. Pulses normal. Respiratory: No respiratory distress. Breath sounds normal. Abdomen: Soft and mild diffuse ttp no rebound. Skin: Skin warm and dry. pale skin color. Normal skin turgor. Extremities: No lower extremity edema. No calf ttp Neuro: Oriented X 3. No motor deficit. No sensory deficit. Course Course Course Narrative: currently asleep 2L of IVF infusing Medications Administered Discontinued Medications Generic Name Dose Route Start Last Admin Trade Name Ayse PRN Reason Stop Dose Admin Diphenhydramine HCl 50 mg 11/12/23 03:47 11/12/23 04:11 Diphenhydramine Hcl 50 Mg/Ml Vial IVPUSH 11/12/23 03:48 50 mg ONCE ONE Administration Sodium Chloride 1,000 mls @ 999 mls/hr 11/12/23 04:00 11/12/23 04:11 Ns IV 11/12/23 05:00 999 mls/hr .Q1H1M NORMA Administration Sodium Chloride 1,000 mls @ 999 mls/hr 11/12/23 04:00 11/12/23 04:11 Ns IV 11/12/23 05:00 999 mls/hr .Q1H1M NORMA Administration Metoclopramide HCl 10 mg 11/12/23 03:47 11/12/23 04:12 Metoclopramide Hcl 10 Mg/2 Ml Vial IVPUSH 11/12/23 03:48 10 mg ONCE ONE Administration Medical Decision Making Medical Decision Making [facility] Narrative: 48 yo female with seafood dinner then subsequently started to feel very ill with n/v/d and abdominal cramps at this time will need basic labs and supportive medications - no travel or abx use in the last 4 weeks no localized ttp in abdomen suspect food toxicity at this time Differential Diagnosis Differential Diagnoses: The differential diagnosis associated with the presentation includes viral syndrome, food toxicity Admission/Observation Consideration of admission/observation: Escalation of care including admission/observation considered feels much better after medications vomiting and diarrhea resolved Lab Data [facility] Lab Attestation statement: I reviewed the patient's lab results. 11/12/23 04:06 11/12/23 04:06 Labs: Lab Results 11/12/23 Range/Units 04:06 WBC 9.3 (4.8-10.8) X10*3/uL RBC 4.78 (4.20-5.50) X10*6/uL Hgb 13.9 (12.0-16.0) g/dl Hct 41.4 (37.0-47.0) % MCV 86.6 (80.0-98.0) fL MCH 29.1 (27.0-33.0) pg MCHC 33.6 (31.0-35.0) g/dl RDW 12.3 (11.0-16.0) % Plt Count 247 (160-400) X10*3/uL MPV 9.8 (9.4-12.3) fL Immature Gran % (Auto) 0.2 (0.0-0.4) % Neut % (Auto) 90.5 H (45-73) % Lymph % (Auto) 4.4 L (20-40) % [place] % (Auto) 3.8 (2-11) % Eos % (Auto) 0.9 (0-4) % Baso % (Auto) 0.2 (0-2) % Lymph # (Auto) 0.4 L (1.2-4.9) X10*3/uL [place] # (Auto) 0.4 (0.1-1.2) X10*3/uL Eos # (Auto) 0.1 (0.0-0.4) X10*3/uL Baso # (Auto) 0.0 (0.0-0.2) X10*3/uL Abs Immat Gran (auto) 0.02 (0.00-0.03) X10*3/uL Absolute Neuts (auto) 8.5 H (2.0-8.3) x10*3/uL Absolute Nucleated RBC 0.000 (0.0-0.012) X10*3/uL Nucleated RBC % (auto) 0.0 (0.0-0.2) /100WBC Smear Tech's Comments VERIFIED Sodium 140 (135-145) mmol/L Potassium 4.6 (3.3-5.1) mmol/L Chloride 109 H (96-108) mmol/L Carbon Dioxide 22 (22-29) mmol/L Anion Gap 14 (12-20) BUN 13 (9-16) mg/dL Creatinine 0.76 (0.5-1.4) mg/dL Estim Creat Clear Calc 98.8 Estimated GFR > 60 Random Glucose 152 H (60-115) mg/dL Calcium 9.3 (8.4-10.2) mg/dL Magnesium 1.8 (1.6-2.6) mg/dL Total Bilirubin 0.5 (0.0-1.0) mg/dL Direct Bilirubin 0.1 (0.0-0.5) mg/dL AST 35 H (5-31) U/L ALT 36 H (0-31) U/L Alkaline Phosphatase 112 (39-117) U/L Total Protein 8.0 (6.5-8.0) g/dL Albumin 4.2 (3.5-5.0) g/dL COVID-19 (SEUN) Negative (Negative) COVID-19 Clin Com See Note Influenza Type A (RENÉ) Negative (Negative) Influenza Type B (RENÉ) Negative (Negative) Influenza A & B Note See Note Independent Historian Clinical information obtained from an independent historian. History obtained from or confirmed by: EMS External Record Review External record reviewed: Office record Prescription Management I considered prescription management with: Other Critical Care Time Critical Care Time Critical Care Time: Yes Total Critical Care Time: 40 Attestation: repeat assessment, 2L of IVF ordered for fluid resuscitation I attest to this time spent taking care of the patient Discharge Plan Discharge Clinical Impression: Vomiting Qualifiers: Vomiting type: unspecified Nausea presence: with nausea Qualified Code(s): R11.2 - Nausea with vomiting, unspecified Diarrhea Qualifiers: Diarrhea type: presumed infectious Qualified Code(s): R19.7 - Diarrhea, unspecified Patient Disposition: Home, Self-Care Instructions: Acute Nausea and Vomiting (ED), Acute Diarrhea (ED) Additional Instructions: stay hydrated, advance diet slowly over 48 hours - bananas apple sauce rice and toast. can have yogurt as well but be carefuul with dairy and limit intake over the next few days advance dairy slowly. return for worsening pain, fevers, bloody stools, inability to eat or drink or any other concerns. it is okay to take immodium as long as you do not have a fever over 100.4, bloody stools or severe abdominal pain Prescriptions: New ondansetron 4 mg tablet,disintegrating 4 mg PO Q8H PRN (Reason: nausea and vomiting) Qty: 20 0RF No Action naproxen 500 mg tablet 500 mg PO BID PRN (Reason: pain) 7 Days Qty: 28 0RF clindamycin HCl 300 mg capsule 300 mg PO QID 7 Days Qty: 28 0RF cholecalciferol (vitamin D3) 25 mcg (1,000 unit) capsule 25 mcg PO DAILY vitamin E (dl, acetate) 450 mg (1,000 unit) capsule 450 mg PO DAILY albuterol sulfate 90 mcg/actuation HFA aerosol inhaler 2 puff PO Q4H PRN (Reason: Wheezing) Qty: 6.7 0RF benzonatate 100 mg capsule 100 mg PO TID PRN (Reason: cough) 10 Days Qty: 30 1RF ondansetron HCl 4 mg tablet 4 mg PO Q8H PRN (Reason: nausea and vomiting) 3 Days Qty: 9 0RF Stand Alone Forms: Work/School Release
--- NOTE | 2023-11-12 03:55 | PC.NURSE ---
IV access established in right AC - pt crying that it hurt too much and she wanted it removed. pt adamantly stating she wants IV removed even though it was working appropriately. IV removed per pt request. pt requesting another RN to try to establish access.
[2023-11-12] MEDS: 0.9 % Sodium Chloride 1,000 ML 999 ML IV ×2 (04:11)
[2023-11-12] MEDS: diphenhydrAMINE HCL 50 MG/ML VIAL IVPUSH (04:11)
[2023-11-12] MEDS: Metoclopramide HCl 10 MG/2 ML VIAL IVPUSH (04:12)
[2023-11-12 04:15] LABS: Basophils Percent Auto 0.2 % (0-2); Eosinophils Absolute Auto 0.1 X10*3/uL (0.0-0.4); Eosinophils Percent Auto 0.9 % (0-4); Hematocrit 41.4 % (37.0-47.0); Hemoglobin 13.9 g/dl (12.0-16.0); Imm Gran Abs Auto 0.02 X10*3/uL (0.00-0.03); Imm Gran Pct Auto 0.2 % (0.0-0.4); Lymphocytes Absolute Auto 0.4 X10*3/uL (1.2-4.9); Lymphocytes Percent Auto 4.4 % (20-40); MANUAL DIFF FLAG SCAN; Mean Corpuscular HGB Conc 33.6 g/dl (31.0-35.0); Mean Corpuscular Hemoglobin 29.1 pg (27.0-33.0); Mean Corpuscular Volume 86.6 fL (80.0-98.0); Mean Platelet Volume 9.8 fL (9.4-12.3); Monocytes Absolute Auto 0.4 X10*3/uL (0.1-1.2); Monocytes Percent Auto 3.8 % (2-11); Neutrophils Absolute Auto 8.5 x10*3/uL (2.0-8.3); Neutrophils Percent Auto 90.5 % (45-73); Platelet Count 247 X10*3/uL (160-400); Red Blood Count 4.78 X10*6/uL (4.20-5.50); Red Cell Distribution Width 12.3 % (11.0-16.0); SCAN SMEAR FLAG 1; White Blood Count 9.3 X10*3/uL (4.8-10.8)
[2023-11-12 04:30] LABS: COVID-19 Test Negative (Negative); IDNOW Serial# 08D9AD1C; IDNOW Serial# 152EDE1D; Influenza A Negative (Negative); Influenza B2 Negative (Negative)
[2023-11-12 04:33] LABS: SLIDE REVIEW VERIFIED
[2023-11-12 04:38] LABS: Alanine Aminotransferase 36 U/L (0-31); Albumin Level 4.2 g/dL (3.5-5.0); Alkaline Phosphatase 112 U/L (39-117); Anion Gap 14 (12-20); Aspartate Amino Transferase 35 U/L (5-31); Bilirubin Direct 0.1 mg/dL (0.0-0.5); Bilirubin Total 0.5 mg/dL (0.0-1.0); Blood Urea Nitrogen 13 mg/dL (9-16); Calcium 9.3 mg/dL (8.4-10.2); Carbon Dioxide 22 mmol/L (22-29); Chloride 109 mmol/L (96-108); Creatinine Clr Calc Pharmacy 98.8; Estimated Glomerular Filt Rate > 60; Glucose Random 152 mg/dL (60-115); Magnesium 1.8 mg/dL (1.6-2.6); Potassium 4.6 mmol/L (3.3-5.1); Sodium 140 mmol/L (135-145)
[2023-11-12 06:08] VITALS: BP 132/71; PULSE 81; RESP 16; TEMP 37; O2SAT 98
== END 2023-11-12 07:22 | disposition home or self-care (01) ==
PROVIDERS: Emergency Provider Emergency Medicine
DX: R11.2 Nausea with vomiting, unspecified (principal); R19.7 Diarrhea, unspecified; Z11.52 Encounter for screening for COVID-19; Z79.899 Other long term (current) drug therapy
CPT/HCPCS: 80048; 80076; 83735; 85025; 87502; 87635; 96374; 96375; 99284; J1200; J2765

== ENCOUNTER 2024-03-01 13:55 | Outpatient (AMB) | payer OTHER, SELFPAY ==
[2024-03-01 14:01] VITALS: BP 128/78; PULSE 96; O2SAT 98; BMI 29.3
--- NOTE | 2024-03-01 14:01 | A.OFFPC_ITS ---
Vital Signs 03/01/24 14:01 Height 5 ft 6 in Weight 181 lb 6 oz BMI 29.3 BP 128/78 Blood Pressure Location Rt brachial Position Sitting Pulse 96 Pulse Source Pulse Oximeter Pulse Oximetry (%) 98 Oxygen Delivery Method Room Air Intake Visit Reasons: PE Intake Note: Pt is here today for her annual Physical. Last Mammo 11/08/22 Pt states she doesn't know when last pap smear. Allergies azithromycin [From Zithromax] Allergy (Intermediate, Verified 03/01/24 14:28) Anaphylaxis morphine [Morphine] Allergy (Mild, Verified 03/01/24 14:28) RASH penicillin G [Penicillin G] Allergy (Mild, Verified 03/01/24 14:28) ANAPHYLAXIS penicillin V Allergy (Unknown, Verified 03/01/24 14:28) anaphylaxis Medication List - Last Reconciled 03/01/24 by Cristina Andersen MD albuterol sulfate 90 mcg/actuation 2 puffs PO Q4H PRN cholecalciferol (vitamin D3) 25 mcg PO DAILY vitamin E (dl, acetate) 450 mg PO DAILY Tobacco use date assessed: 03/01/24 Dental Screening Dental Screen Date: 03/01/24 Did you have a dental visit in the last 12 months?: Yes Did you have a dental problem in the last 6 months where you did not have access to dental care?: No Was dental information given to patient?: Patient has dentist HPI PE HPI Details 48-year-old lady here today for physical exam. She had her last mammogram 11/08/2022, due for recheck this year., does not know when her last Pap smear was and has not yet had a colon cancer screening done. She has hyperlipidemia on last lab done a year ago. Has mild intermittent asthma currently using only albuterol inhaler as needed for episodes of bronchospasm and wheezing. [facility] Medical History (Updated 03/01/24 @ 14:59 by Cristina Andersen MD) History of COVID-19 Hyperlipidemia History of vitamin D deficiency Hx of renal calculi Elevated alkaline phosphatase level Elevated liver enzymes Family history of thyroid disease Hx gestational diabetes Annual visit for general adult medical examination with abnormal findings Mild intermittent asthma Lumbago of lumbar region with sciatica Surgical History History of removal of cyst History of eye surgery History of tubal ligation History of appendectomy Family History Father CVD (cardiovascular disease) Mother No problems noted. Daughter No problems noted. Daughter No problems noted. 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 1. Little interest or pleasure in doing things: not at all 2. Feeling down, depressed, or hopeless: not at all 3. Trouble falling or staying asleep, or sleeping too much: several days 4. Feeling tired or having little energy: several days 5. Poor appetite or overeating: not at all 6. Feeling bad about yourself - or that you are a failure or have let yourself or your family down: not at all 7. Trouble concentrating on things, such as reading the newspaper or watching television: not at all 8. Moving or speaking so slowly that other people could have noticed. Or the opposite - being so fidgety or restless that you have been moving around a lot more than usual: not at all 9. Thoughts that you would be better off or of hurting yourself in some way: not at all Total score: 2 Depression Screening Interpretation: Negative Depression Screening Done: Yes 24298 - PHQ-9 Billing: Yes Source: Developed by Drs. Felix Quach, Suzanna Claire, Rico Moore and colleagues, with an educational kaia from [employer]. Thrive Questionnaire Date Thrive assessed: 03/01/24 I am a: Patient What is your living situation today?: I have a steady place to live Within the past 12 months, did the food you bought not last and you didn't have the money to get more?: Often true Within the past 12 months, did you worry whether your food would run out before you got money to buy more?: Often true Do you have trouble paying for medicines?: No Do you have trouble getting transportation to medical appointments?: No Do you have trouble paying your heating and electricity bill?: No Do you have trouble taking care of your child, family member or friend?: No Do you have trouble with day-to-day activities such as bathing, preparing meals, shopping, managing finances, etc.?: No Are you currently unemployed and looking for a job?: No Are you interested in more education?: No Please select the resources that you would like help with: None Currently or been in a relationship where the following occur: no concerns reported THRIVE Score: 2 AUDIT C Alcohol Use Questionnaire (AUDIT-C) 1. How often do you have a drink containing alcohol?: Never 3. How often do you have six or more drinks on one occasion?: Never Total Score: 0 Score Reviewed/Action Taken: Yes ANNETTE-7 AMB Questionnaire ANNETTE-7 Date ANNETTE - 7 assessed: 03/01/24 Feeling nervous, anxious, or on edge: 1 = Several days Not being able to stop or control worryin = Several days Worrying too much about different things: 1 = Several days Trouble relaxin = Not at all Being so restless that it is hard to sit still: 0 = Not at all Becoming easily annoyed or irritable: 1 = Several days Feeling afraid as if something awful might happen: 1 = Several days Total ANNETTE-7 score (0-4 normal; 5-9 mild; 10-14 moderate; 15-21 severe): 5 Source: Developed by Drs. Felix Quach, Suzanna Claire, Rico Moore and colleagues, with an educational kaia from [employer]. ANNETTE-7 Assessment Billing ANNETTE-7 Assessment Tool: ANNETTE-7 Assessment 72230 Review of Systems Const Denies body aches, Denies fever(s) and Denies weakness Eyes Details: Goes to [facility] [facility] Reports requires corrective lenses ENT Denies dizziness, Denies nasal congestion, Denies nasal discharge and Denies sore throat Card Denies chest pain, Denies lightheadedness, Denies palpitations and Denies dyspnea Resp Denies chest congestion, Denies cough and Denies dyspnea GI Denies melena, Denies hematochezia and Denies change in bowel habits Reports no additional complaints Musc Reports no additional complaints Skin/Breast Denies breast pain, Denies breast mass, Denies lesions and Denies rash Neuro Denies dizziness and Denies weakness Psych Reports no additional complaints Endo Denies polydipsia, Denies polyuria and Denies palpitations Julio/Lymph Reports no additional complaints Aller/Immun Reports seasonal rhinorrhea Physical exam (Primary Care) Vital Signs: Last Vital Signs Pulse 96 03/01/24 14:01 BP 128/78 03/01/24 14:01 Pulse Ox 98 03/01/24 14:01 Oxygen Delivery Method Room Air 03/01/24 14:01 BMI result Body Mass Index 29.3 Tobacco/Smoking Status: Tobacco use Status Tobacco use date assessed 03/01/24 03/01/24 14:04 Patient Tobacco Use Status Former Tobacco user 03/01/24 14:04 e-Cigarette/Vaping Use Never Used 03/01/24 14:04 PHQ-9: PHQ-9 Score PHQ-9: Total score 2 03/01/24 14:59 Depression Screening Interpretation: Negative Thrive Assessment: Date of Thrive Assessment Date Thrive assessed 03/01/24 03/01/24 14:09 Currently or been in a relationship where the following occur: no concerns reported Const General: no acute distress Orientation/consciousness: patient oriented x3 HENMT Ears: hearing grossly normal bilaterally, TM's normal bilaterally and EAC's normal General nose exam: Normal external nose present Face and sinus: Yes face symmetric Mouth: Normal oral and palatal mucosa present and moist mucous membranes Eyes General: appearance normal, both eyes and all related structures Neck Neck: Yes full ROM, Yes no lymphadenopathy, Yes no meningeal signs and Yes supple Chest Chest palpation & inspection: normal inspection of the chest Breast/axilla palpation: normal palpation of the breasts Resp Effort & Inspection: normal respiratory effort and able to speak in complete sentences Auscultation: clear to auscultation bilaterally Cardio Palpation: normal PMI Rate: regular rate Rhythm: regular rhythm Heart sounds: S1 normal heart sound present and S2 normal heart sound present GI Inspection: Yes normal to inspection Palpation (GI): Soft to palpation, no guarding, not rigid and no masses Auscultation: normal bowel sounds General: Yes deferred Back/Spine/Pelvis Back: No back tenderness Skin Other: Positive piercing on nipple and navel, tattoos on lower back, and both arms General skin exam: no rashes or lesions noted Neuro General: patient oriented x3, gait normal, tone normal, moves all extremities, Normal light touch and pain sensation, no meningeal signs, no focal motor deficits and CN's II-XI intact bilaterally Extrem General: Yes full ROM, Yes no joint enlargement, Yes no pedal edema and Yes normal gait Psych Appearance: grossly normal and well kempt Mental Status: mental status grossly normal Speech and movement: Normal speech and movement present Affect: normal affect Attitude: cooperative Thought process: Normal thought process present Results Reviewed Results Reviewed: Name: Dorita Watters Age/Sex: 48/F : 1975 Unit#: [id number] Attend Dr: Corrina Blackwell DO Re11/12/23 Status: DEP ER Location: [facility].ED Disch: SPEC : [id number] KHUSHBOO: 11/12/23 STATUS: COMP REQ : [id number] RECD: 11/12/[address]: Corrina Blackwell DO COMP: 11/12/23 ENTERED: 11/12/[address] [facility] [address]: ORDERED: CBC Auto Diff, SLIDE REVIEW Test Result Flag Reference WBC 9.3 4.8-10.8 X10*3/uL RBC 4.78 4.20-5.50 X10*6/uL HGB 13.9 12.0-16.0 g/dl HCT 41.4 37.0-47.0 % MCV 86.6 80.0-98.0 fL MCH 29.1 27.0-33.0 pg MCHC 33.6 31.0-35.0 g/dl RDW 12.3 11.0-16.0 % PLT 247 160-400 X10*3/uL MPV 9.8 9.4-12.3 fL Neut Pct Auto 90.5 H 45-73 % ImGran Pct Auto 0.2 0.0-0.4 % Lymp Pct Auto 4.4 L 20-40 % [place] Pct Auto 3.8 2-11 % Eos Pct Auto 0.9 0-4 % Baso Pct Auto 0.2 0-2 % NRBC Pct Auto 0.0 0.0-0.2 /100WBC ANC Neut Abs # 8.5 H 2.0-8.3 x10*3/uL ImGran Abs Auto 0.02 0.00-0.03 X10*3/uL Lymph Abs Auto 0.4 L 1.2-4.9 X10*3/uL [place] Abs Auto 0.4 0.1-1.2 X10*3/uL Eos Abs Auto 0.1 0.0-0.4 X10*3/uL Baso Abs Auto 0.0 0.0-0.2 X10*3/uL NRBC Abs Auto 0.000 0.0-0.012 X10*3/uL SLIDE REVIEW VERIFIED RUN: 03/01/24 1426 PAGE 1 [facility] [address] [place] [id number] Last Waxer: Contreras Ramirez M.D. Specimen Inquiry Name: Dorita Watters Age/Sex: 48/F : 1975 Unit#: [id number] Attend Dr: Corrina Blackwell DO Re11/12/23 Status: [facility]P [facility] Disch: SPEC : [id number] KHUSHBOO: 11/12/23 STATUS: COMP REQ : [id number] RECD: 11/12/[address] [facility] [address]: Corrina Blackwell DO COMP: 11/12/23-437 ENTERED: 11/12/23-[address]: ORDERED: Liver Panel, BMP, MG Test Result Flag Reference Sodium 140 135-145 mmol/L Potassium 4.6 3.3-5.1 mmol/L Slight Hemolysis CL 109 H 96-108 mmol/L CO2 22 22-29 mmol/L Gap 14 12-20 BUN 13 9-16 mg/dL Creat 0.76 0.5-1.4 mg/dL Estimated CrCl 98.8 Provided height and weight: 167.64 cm, 83.915 kg. eGFR (calculated from the MDRD study equation) and eCrCl (calculated from the Cockcroft-Gault equation) are based on different parameters and may not yield comparable results. If eCrCl result is absurd, please check patient's height/weight. EGFR > 60 NOTE: For -Faro[place] individuals, multiply the result by 1.210. Chronic Kidney Disease: Estimated GFR < 60 mL/min/1.73m2 Severe Kidney Disease: Estimated GFR < 15 mL/min/1.73m2 Glucose, Random 152 H 60-115 mg/dL CA 9.3 8.4-10.2 mg/dL Magnesium 1.8 1.6-2.6 mg/dL Total Bili 0.5 0.0-1.0 mg/dL Direct Bili 0.1 0.0-0.5 mg/dL Slight Hemolysis AST (GOT) 35 H 5-31 U/L Slight Hemolysis ALT (GPT) 36 H 0-31 U/L Protein, Total 8.0 6.5-8.0 g/dL Alb 4.2 3.5-5.0 g/dL Alk Phos 112 39-117 U/L Assessment and Plan Assessment & Plan (1) Mild intermittent asthma: Code(s): J45.20 - Mild intermittent asthma, uncomplicated Qualifiers: Asthma complication type: uncomplicated Qualified Code(s): J45.20 - Mild intermittent asthma, uncomplicated Plan: Takes albuterol inhaler as needed, refill sent. Up-to-date with her pneumonia vaccination, but does not want to get flu shot or COVID vaccine (2) Annual visit for general adult medical examination with abnormal findings: Code(s): Z00.01 - Encounter for general adult medical examination with abnormal findings Plan: Will check appropriate labs. Recommended dental visit every 6 months and regular eye exams, at least every 2 years, goes to [place] [facility]. Take adequate calcium in diet and vitamin-D 3 at 2000 IU per cap once a day, in addition to weight-bearing exercises to help maintain good muscle tone and weight control. Instructed to do self-breast exam, and advised to get yearly mammogram, will schedule appointment for her mammogram and her Pap smear. Does not want to get COVID vaccine, does not want to get flu shot, up-to-date with her pneumonia vaccination, and Tdap. Declines getting colonoscopy procedure but willing to do Cologuard, will check with insurance if covered and will let me know (3) Hx gestational diabetes: Code(s): Z86.32 - Personal history of gestational diabetes Plan: Fasting blood sugar or (4) History of vitamin D deficiency: Code(s): Z86.39 - Personal history of other endocrine, nutritional and metabolic disease Plan: Will check vitamin-D (5) Hyperlipidemia: Code(s): E78.5 - Hyperlipidemia, unspecified Qualifiers: Hyperlipidemia type: pure hypercholesterolemia Qualified Code(s): E78.00 - Pure hypercholesterolemia, unspecified Plan: Reinforced importance of following a low-cholesterol diet and getting regular exercise, fasting lipid panel Orders: Orders Alanine Aminotransferase 03/01/24 J45.20 - Mild intermittent asthma, uncomplicated, Z00.01 - Encounter for general adult medical examination with abnormal findings, Z86.32 - Personal history of gestational diabetes, Z86.39 - Personal history of other endocrine, nutritional and metabolic disease Lipid Panel 03/01/24 J45.20 - Mild intermittent asthma, uncomplicated, Z00.01 - Encounter for general adult medical examination with abnormal findings, Z86.32 - Personal history of gestational diabetes, Z86.39 - Personal history of other endocrine, nutritional and metabolic disease Vitamin D 25-OH Total 03/01/24 J45.20 - Mild intermittent asthma, uncomplicated, Z00.01 - Encounter for general adult medical examination with abnormal findings, Z86.32 - Personal history of gestational diabetes, Z86.39 - Personal history of other endocrine, nutritional and metabolic disease Basic Metabolic Panel Fasting 03/01/24 J45.20 - Mild intermittent asthma, uncomplicated, Z00.01 - Encounter for general adult medical examination with abnormal findings, Z86.32 - Personal history of gestational diabetes, Z86.39 - Personal history of other endocrine, nutritional and metabolic disease Aspartate Amino Transferase 03/01/24 J45.20 - Mild intermittent asthma, uncomplicated, Z00.01 - Encounter for general adult medical examination with abnormal findings, Z86.32 - Personal history of gestational diabetes, Z86.39 - Personal history of other endocrine, nutritional and metabolic disease Hemoglobin A1c 03/01/24 J45.20 - Mild intermittent asthma, uncomplicated, Z00.01 - Encounter for general adult medical examination with abnormal findings, Z86.32 - Personal history of gestational diabetes, Z86.39 - Personal history of other endocrine, nutritional and metabolic disease Medications: Refilled albuterol sulfate 90 mcg/actuation 2 puffs PO Q4H PRN 6.7 grams 5RF Wheezing Coding Level of Care Code Est Pt Level 4 (67066) Est Pt Prev Care 40-64y(32848) Diagnoses Mild intermittent asthma without complication J45.20 Asthma complication type: uncomplicated Annual visit for general adult medical examination with abnormal findings Z00.01 Hx gestational diabetes Z86.32 History of vitamin D deficiency Z86.39 Pure hypercholesterolemia E78.00 Hyperlipidemia type: pure hypercholesterolemia Additional Codes ANNETTE-7 Assessment Billing - ANNETTE-7 Assessment Tool: ANNETTE-7 Assessment [id number] ([id number])
== END 2024-03-01 14:53 | disposition home or self-care (01) ==
PROVIDERS: Visit Provider Internal Medicine
DX: Z00.00 Encounter for general adult medical examination without abnormal findings (principal); J45.20 Mild intermittent asthma, uncomplicated; Z86.32 Personal history of gestational diabetes; Z86.39 Personal history of other endocrine, nutritional and metabolic disease; E78.00 Pure hypercholesterolemia, unspecified
CPT/HCPCS: 99396

== ENCOUNTER 2024-03-03 08:45 | Outpatient (REF) | payer OTHER, SELFPAY ==
[2024-03-03 11:32] LABS: Estimated Average Glucose 108 mg/dL; Hemoglobin A1c % 5.4 % (<6.0)
[2024-03-03 12:07] LABS: Alanine Aminotransferase 21 U/L (0-31); Anion Gap 14 (12-20); Aspartate Amino Transferase 17 U/L (5-31); Blood Urea Nitrogen 9 mg/dL (9-16); Calcium 9.5 mg/dL (8.4-10.2); Carbon Dioxide 25 mmol/L (22-29); Chloride 108 mmol/L (96-108); Cholesterol 214 mg/dL (<200); Estimated Glomerular Filt Rate > 60; Glucose Fasting 91 mg/dL (60-99); HDL Cholesterol 68 mg/dL (>40); LDL Cholesterol Calculated 133 mg/dL (<100); Potassium 3.9 mmol/L (3.3-5.1); Sodium 143 mmol/L (135-145); Triglycerides 67 mg/dL (<150)
[2024-03-03 12:27] LABS: Vitamin D 25-OH Total 22.1 ng/mL (>30)
== END 2024-03-03 08:46 | disposition home or self-care (01) ==
LOC: HO.HMGCLDS 08:45
PROVIDERS: PCP Internal Medicine; Visit Provider Internal Medicine
DX: Z00.01 Encounter for general adult medical examination with abnormal findings (principal); Z86.32 Personal history of gestational diabetes; J45.20 Mild intermittent asthma, uncomplicated; Z86.39 Personal history of other endocrine, nutritional and metabolic disease
CPT/HCPCS: 36415; 80048; 80061; 82306; 83036; 84450; 84460

== ENCOUNTER 2024-06-20 15:06 | Outpatient (AMB) | payer OTHER, SELFPAY ==
--- NOTE | 2024-06-20 15:08 | AM.OFFWIN_ITS ---
Intake Vital Signs 06/20/24 15:09 Height 5 ft 6 in Weight 174 lb BMI 28.1 BP 124/78 Blood Pressure Location Lt brachial Position Sitting Pulse 78 Pulse Source Pulse Oximeter Temp 98.8 F Temp Source Oral Pulse Oximetry (%) 98 Oxygen Delivery Method Room Air Intake Visit Reasons: ep rt toe injury Intake Note: pt c/o RT toe injury. Banged on headboard this afternoon Patient Tobacco Use Status: Former Tobacco user Allergies azithromycin [From Zithromax] Allergy (Intermediate, Verified 06/20/24 15:09) Anaphylaxis morphine [Morphine] Allergy (Mild, Verified 06/20/24 15:09) RASH penicillin G [Penicillin G] Allergy (Mild, Verified 06/20/24 15:09) ANAPHYLAXIS penicillin V Allergy (Unknown, Verified 06/20/24 15:09) anaphylaxis Do you need a note to return to daycare/school/sports/work: No HPI HPI Comments History of Present Illness Details Patient is a 48-year-old female who states she dropped a wooden headboard on her toe about an hour and 20 minutes ago. She states it is difficult to walk on because it is painful. She was wearing birkenstock sandals at the time. She states she can wiggle her for other toes and move her ankle fine but the great toe hurts the most when she walks. COUNT INCLUDES THE [facility] Medical History (Updated 06/20/24 @ 16:09 by Julieth Rubin PA-C) History of COVID-19 Hyperlipidemia History of vitamin D deficiency Hx of renal calculi Elevated alkaline phosphatase level Elevated liver enzymes Family history of thyroid disease Hx gestational diabetes Annual visit for general adult medical examination with abnormal findings Mild intermittent asthma Lumbago of lumbar region with sciatica Surgical History History of removal of cyst History of eye surgery History of tubal ligation History of appendectomy Family History Father CVD (cardiovascular disease) Mother No problems noted. Daughter No problems noted. Daughter No problems noted. 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 Current occupational exposures/hazards: No Sexual orientation: Straight/Heterosexual Gender identity: Female Cognitive needs: No Hearing needs: No Vision needs: No Review of Systems Const All systems reviewed & are unremarkable except as noted in HPI and below Physical Exam Vital Signs: Last Vital Signs Temp 98.8 F 06/20/24 15:09 Pulse 78 06/20/24 15:09 BP 124/78 06/20/24 15:09 Pulse Ox 98 06/20/24 15:09 Oxygen Delivery Method Room Air 06/20/24 15:09 BMI result Body Mass Index 28.1 Const General: cooperative, healthy appearing, comfortable, no acute distress and well developed Orientation/consciousness: patient oriented x3 Limitations: no limitations Neuro General: patient oriented x3 Extrem Right lower extremity: ankle Details: normal to inspection, no edema and normal ROM; no unusual warmth, no abrasions, no lacerations and no ecchymosis and foot Details: normal capillary refill, normal to inspection, abnormal ROM of toe Details: pain with active ROM Location: of the great toe and pain with passive ROM Location: of the great toe and no edema; no abrasion, no laceration and no ecchymosis Assessment & Plan Assessment & Plan (1) Injury of toe on right foot: Code(s): S99.921A - Unspecified injury of right foot, initial encounter Qualifiers: Encounter type: initial encounter Qualified Code(s): S99.921A - Unspecified injury of right foot, initial encounter Plan: X-ray did not show any obvious fracture or dislocation. Fitted patient for a boot, gave instructions to rest, use ice and ibuprofen as needed and wear the boot as often as possible for the next 1-2 weeks. If no improvement in her pain, she should follow up with her PCP or orthopedics referral should be sent Plan See above Orders: Orders XR foot RT min 3V Today S99.921A - Unspecified injury of right foot, initial encounter Coding Level of Care Code Est Pt Level 4 (11839) Diagnoses Injury of toe on right foot, initial encounter S99.921A Encounter type: initial encounter
[2024-06-20 15:09] VITALS: BP 124/78; PULSE 78; TEMP 37.1; O2SAT 98; BMI 28.1
== END 2024-06-20 16:33 | disposition home or self-care (01) ==
PROVIDERS: PCP Internal Medicine; Visit Provider Physician Assistant
DX: S99.921A Unspecified injury of right foot, initial encounter (principal)
CPT/HCPCS: 99214

== ENCOUNTER 2024-06-20 16:11 | Outpatient (REF) | payer OTHER, SELFPAY ==
--- NOTE | ~2024-06-20 | XR_ITS ---
EXAMINATION: XR FOOT, RIGHT CLINICAL INFORMATION: Unspecified injury. COMPARISON: Radiograph right food 06/09/2020. TECHNIQUE: AP, lateral, and oblique views of the right foot. FINDINGS: No evidence of acute fracture or dislocation. 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 No portions erosions. Suggestion of soft tissue swelling in the plantar surface of the hindfoot. No unusual soft tissue calcifications. No unexpected radiopaque foreign bodies. XR/XR foot RT min 3V IMPRESSION: 1. No acute fracture or dislocation. 2. 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 3. Suggestion of soft tissue swelling in the plantar surface of the hindfoot. Correlate with physical examination. Electronically signed by: Agatha Browning MD 06/20/2024 06:11 PM EDT
== END 2024-06-20 16:12 | disposition home or self-care (01) ==
LOC: HO.HMGCX 16:11
PROVIDERS: PCP Internal Medicine; Visit Provider Physician Assistant
DX: S99.921A Unspecified injury of right foot, initial encounter (principal)
CPT/HCPCS: 73630